=== PATIENT | female | born 1990 | race American Indian/Alaskan Native ===

== ENCOUNTER 2016-05-17 07:39 | Emergency (ER) | payer OTHER ==
--- NOTE | 2016-05-17 11:48 | Emergency Department Report ---
ED Fall HPI - General Chief Complaint: Fall Stated Complaint: BACK SHOULDER NECK PAIN/FALL Time Seen by Provider: 05/17/16 11:42 Source: patient Mode of arrival: Ambulatory Limitations: No Limitations - History of Present Illness Initial Comments: Patient here reports that she fell off a ladder approximately 3-4 feet unsightly. She says she felt her back. Denies any head injury or loss of consciousness. She says she took Tylenol without any relief. She is use ice and hot soaks without any relief. She said the pain is going down the back of her neck and also in is located in mid back and lower back. Denies any nausea or vomiting. Has any loss of bowel or bladder control. Denies any dizziness, blurred vision or unsteady on feet. Pain is 7-9 out of 10. She reports pain is achy. Denies any radiation of pain to extremities. MD Complaint: fall Onset/Timin -: days(s) Fall From: from height (distance) (fell 3-4 feet off a ladder) When Fall Occurred: # days [employer] (3) Fall Witnessed: yes, by family Place Fall Occurred: home Loss of Consciousness: none Prolonged Down Time?: no Symptoms Prior to Fall: none Location: neck, back Severity: severe Severity scale (0 -10): 9 Quality: aching Context: tripped/slipped Associated Symptoms: denies: headache, neck pain, numbness, weakness, chest paint, shortness of breath, abdominal pain, hematuria, unable to walk, lightheaded, vertigo, confusion - Related Data Previous Rx's Medication Instructions Recorded Last Taken Type ALBUTEROL Inhaler [ProAir HFA 1 puff INHALATION Q4-6H PRN #1 inha 04/05/13 Unknown Rx Inhaler] Ondansetron [Zofran] 4 mg PO Q8HR PRN #12 tablet 04/05/13 Unknown Rx Amoxicillin/K Clav Tab [Augmentin 1 tab PO BID #20 tablet 06/04/13 Unknown Rx 875MG] Fluticasone Propionate [Flonase] 2 sprays NS DAILY #1 spray.susp 06/04/13 Unknown Rx Loratadine [Claritin] 10 mg PO DAILY #30 tablet 06/04/13 Unknown Rx predniSONE [Deltasone] 50 mg PO QDAY #5 tab 06/04/13 Unknown Rx SUMAtriptan SUCCINATE [Imitrex] 25 mg PO BID PRN #20 tab 07/31/14 Unknown Rx Ibuprofen [Motrin] 600 mg PO Q8H PRN #50 tablet 03/06/15 Unknown Rx traMADol [Ultram] 50 mg PO Q6HR PRN #20 tablet 03/06/15 Unknown Rx Penicillin Vk [Veetids TAB] 500 mg PO QID #56 tablet 11/13/15 Unknown Rx Cyclobenzaprine [Flexeril 10 MG 10 mg PO ONCE PRN #15 tablet 05/17/16 Unknown Rx TAB] Ibuprofen [Motrin 800 MG tab] 800 mg PO ONCE PRN #15 tablet 05/17/16 Unknown Rx Allergies Allergy/AdvReac Type Severity Reaction Status Date / Time codeine Allergy Angioedema Verified 05/17/16 09:08 hydrocodone Allergy Hives Verified 05/17/16 09:08 ED Review of Systems ROS: Stated complaint: BACK SHOULDER NECK PAIN/FALL Other details as noted in HPI Comment: All other systems reviewed and negative Constitutional: denies: chills, fever Respiratory: no symptoms reported Cardiovascular: denies: chest pain, palpitations, edema, syncope Gastrointestinal: denies: abdominal pain, nausea, vomiting, diarrhea Musculoskeletal: back pain, arthralgia. denies: joint swelling Skin: denies: rash Neurological: denies: headache, weakness, numbness, paresthesias, confusion, abnormal gait, vertigo ED Past Medical Hx - Past Medical History Previous Medical History?: Yes Hx Headaches / Migraines: Yes (MIGRAINE) Hx Seizures: Yes Hx Psychiatric Treatment: Yes (ANXIETY) Hx Asthma: Yes Additional medical history: Panic attacks, herniated cervical disc - Surgical History Past Surgical History?: No - Family History Family history: no significant - Social History Smoking Status: Never Smoker Substance Use Type: Alcohol - Medications Home Medications: Home Medications Medication Instructions Recorded Confirmed Last Taken Type ALBUTEROL Inhaler [ProAir HFA 1 puff INHALATION Q4-6H PRN #1 inha 04/05/13 Unknown Rx Inhaler] Ondansetron [Zofran] 4 mg PO Q8HR PRN #12 tablet 04/05/13 Unknown Rx Amoxicillin/K Clav Tab [Augmentin 1 tab PO BID #20 tablet 06/04/13 Unknown Rx 875MG] Fluticasone Propionate [Flonase] 2 sprays NS DAILY #1 spray.susp 06/04/13 Unknown Rx Loratadine [Claritin] 10 mg PO DAILY #30 tablet 06/04/13 Unknown Rx predniSONE [Deltasone] 50 mg PO QDAY #5 tab 06/04/13 Unknown Rx SUMAtriptan SUCCINATE [Imitrex] 25 mg PO BID PRN #20 tab 07/31/14 Unknown Rx Ibuprofen [Motrin] 600 mg PO Q8H PRN #50 tablet 03/06/15 Unknown Rx traMADol [Ultram] 50 mg PO Q6HR PRN #20 tablet 03/06/15 Unknown Rx Penicillin Vk [Veetids TAB] 500 mg PO QID #56 tablet 11/13/15 Unknown Rx Cyclobenzaprine [Flexeril 10 MG 10 mg PO ONCE PRN #15 tablet 05/17/16 Unknown Rx TAB] Ibuprofen [Motrin 800 MG tab] 800 mg PO ONCE PRN #15 tablet 05/17/16 Unknown Rx ED Physical Exam - General Limitations: No Limitations General appearance: alert, in no apparent distress - Head Head exam: Present: atraumatic, normocephalic, normal inspection - Expanded Head Exam Expanded Head exam: Absent: laceration, abrasion, contusion, hematoma, racoon eyes, young's sign, general tenderness, tenderness of temporal artery, CSF rhinorrhea , CSF otorrhea - Eye Eye exam: Present: normal appearance, PERRL, EOMI. Absent: periorbital swelling , periorbital tenderness Pupils: Present: normal accommodation - Expanded ENT Exam Expanded Ear exam: Present: normal external inspection - Neck Neck exam: Present: normal inspection, tenderness, full ROM. Absent: meningismus, lymphadenopathy - Expanded Neck Exam Expanded Neck exam: Present: tenderness. Absent: midline deformity, anterior neck swelling, tracheal deviation - Respiratory Respiratory exam: Present: normal lung sounds bilaterally. Absent: respiratory distress, chest wall tenderness - Cardiovascular Cardiovascular Exam: Present: regular rate, normal rhythm, normal heart sounds - GI/Abdominal GI/Abdominal exam: Present: soft, normal bowel sounds. Absent: distended, tenderness, guarding, rebound, rigid - Extremities Exam Extremities exam: Present: normal inspection, full ROM, normal capillary refill. Absent: tenderness, pedal edema, joint swelling, calf tenderness - Back Exam Back exam: Present: normal inspection, full ROM, tenderness, vertebral tenderness. Absent: CVA tenderness (R), CVA tenderness (L), muscle spasm, paraspinal tenderness, rash noted - Expanded Back Exam Expanded Back exam: Absent: saddle anesthesia Back exam: Negative Straight Leg Raising: Left, Right - Neurological Exam Neurological exam: Present: alert, oriented X3, normal gait, reflexes normal. Absent: motor sensory deficit - Expanded Neurological Exam Expanded Neurological exam: Absent: innattentive, memory loss-remote event, memory loss- recent event, ataxia, receptive aphasia, expressive aphasia, total aphasia, tremor, protecting the airway Patient oriented to: Present: person, place, time Speech: Present: fluid speech Cranial nerves: EOM's Intact: Normal, Gag Reflex: Normal, Nystagmus: Normal Cerebellar function: Romberg: Normal Upper motor neuron: Pronator Drift: Normal, Sensory Extinction: Normal Sensory exam: Upper Extremity Light Touch: Normal, Upper Extremity Temperature: Normal, UE 2 Point Discrimination: Normal, Lower Extremity Light Touch: Normal, Lower Extremity Temperature: Normal, LE 2 Point Discrimination: Normal Motor strength exam: RUE: 5, LUE: 5, RLE: 5, LLE: 5 DTR: bicep (R): 2+, bicep (L): 2+, tricep (R): 2+, tricep (L): 2+, knee (R): 2+ , knee (L): 2+, ankle (R): 2+, ankle (L): 2+ Best Eye Response (Casey): (4) open spontaneously Best Motor Response (Suches): (6) obeys commands Best Verbal Response (Casey): (5) oriented Suches Total: 15 ED Course Vital Signs 05/17/16 09:09 Temperature 99.1 F Pulse Rate 82 Respiratory 17 Rate Blood Pressure 125/81 O2 Sat by Pulse 100 Oximetry - Reevaluation(s) Reevaluation #1: 05/17/16 12:19 Patient given Flexeril 10 mg by mouth along with Motrin 800 mg by mouth and emergency room for pain. ED Medical Decision Making - Radiology Data Radiology results: report reviewed X-rays C-spine, T-spine and L-spine revealed no acute findings. - Medical Decision Making ED course: Patient status post fall 3-4 feet off ladder. X-ray results of C- spine, T-spine and L-spine revealed no acute findings. This was communicated with patient. Patient given Flexeril 10 mg and Motrin 800 mg in emergency room which relieved her pain. Patient is neurologically intact. I discussed with patient that she will need to follow-up with orthopedic if she continues to have pain. She discharged home with her family with prescription for Flexeril and Motrin. Critical care attestation.: If time is entered above; I have spent that time in minutes in the direct care of this critically ill patient, excluding procedure time. ED Disposition Clinical Impression: Thoracolumbar back pain, Neck arthralgia Accidental fall from ladder Qualifiers: Encounter type: initial encounter Qualified Code(s): W11.XXXA - Fall on and from ladder, initial encounter Disposition: DISCHARGED TO HOME OR SELFCARE Is pt being admited?: No Does the pt Need Aspirin: No Condition: Stable Instructions: Arthralgia (ED), Back Pain (ED) Additional Instructions: Please follow up with orthopedic doctor few continue to have pain. Flexeril can cause drowsiness so please do not drive or operate heavy machinery while taking this medication Prescriptions: Cyclobenzaprine [Flexeril 10 MG TAB] 10 mg PO ONCE PRN #15 tablet PRN Reason: Muscle Spasm Ibuprofen [Motrin 800 MG tab] 800 mg PO ONCE PRN #15 tablet PRN Reason: Pain Referrals: DUKE MYERS MD [Staff Physician] - 2-3 Days Forms: Work/School Release Form(ED)
[2016-05-17] MEDS ORDERED: MOTRIN PO ONE (11:55)
[2016-05-17] MEDS ORDERED: FLEXERIL PO ONE (11:55)
--- NOTE | 2016-05-17 12:39 | XRay Report ---
CERVICAL SPINE, 3 views: History: Neck pain. Findings: The vertebral bodies, disk spaces, posterior elements and prevertebral soft tissues are unremarkable. The dens is intact. No acute fracture or malalignment is identified. Impression: 1. No evidence for acute injury to the cervical spine.
--- NOTE | 2016-05-17 12:41 | XRay Report ---
THORACOLUMBAR SPINE, 2 VIEWS History: Back pain after fall. The bones are normally mineralized with well preserved vertebral height, alignment and interspace distances. No paraspinal soft tissue widening is noted. IMPRESSION: Normal study.
[2016-05-17 13:21] VITALS: BP 130/84
== END 2016-05-17 13:21 | disposition home or self-care (01) ==
LOC: ED 07:39
DX: M54.5 Low back pain (principal); M54.6 Pain in thoracic spine; M54.2 Cervicalgia; G43.909 Migraine, unspecified, not intractable, without status migrainosus; J45.909 Unspecified asthma, uncomplicated; W11.XXXA Fall on and from ladder, initial encounter; Y93.9 Activity, unspecified; Y92.9 Unspecified place or not applicable; Y99.9 Unspecified external cause status
CPT/HCPCS: 72040; 72080; 99283

== ENCOUNTER 2016-09-23 18:51 | Emergency (ER) | payer SELFPAY ==
[2016-09-23 19:04] VITALS: BP 137/91
[2016-09-23] MEDS ORDERED: TORADOL IM ONE (19:21)
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
== END 2016-09-23 20:04 | disposition home or self-care (01) ==
LOC: ED 18:51
DX: S16.1XXA Strain of muscle, fascia and tendon at neck level, initial encounter (principal); M54.5 Low back pain; G89.29 Other chronic pain; G43.909 Migraine, unspecified, not intractable, without status migrainosus; F41.9 Anxiety disorder, unspecified; J45.909 Unspecified asthma, uncomplicated; Z88.5 Allergy status to narcotic agent; Z88.8 Allergy status to other drugs, medicaments and biological substances; V89.2XXA Person injured in unspecified motor-vehicle accident, traffic, initial encounter; Y93.89 Activity, other specified; Y99.9 Unspecified external cause status; Y92.410 Unspecified street and highway as the place of occurrence of the external cause
CPT/HCPCS: 96372; 99282; J1885

== ENCOUNTER 2021-10-06 14:41 | Outpatient (CLI) | payer MEDICAID ==
[2021-10-06] MEDS ORDERED: hydrALAZINE 20 MG/1 ML INJ ONE (16:39)
[2021-10-06] MEDS ORDERED: BETAMET ACET/BETAMET NA PH 6 MG/ML INJ 5 ML MDV IM SCH (18:00)
--- NOTE | 2021-10-06 18:57 | Ultrasound Report ---
ULTRASOUND OBSTETRIC LIMITED ULTRASOUND BIOPHYSICAL PROFILE INDICATION / CLINICAL INFORMATION: . Clinical Gestational Age (GA) in weeks, days: 34, 2 TECHNIQUE: Transabdominal. COMPARISON: None available. FINDINGS: BREATHING MOVEMENT = 0 GROSS BODY MOVEMENT = 2 TONE = 2 QUALITATIVE AMNIOTIC FLUID VOLUME = 2 TOTAL BIOPHYSICAL SCORE = 6/8 HEART RATE (beats per minute): 150 AMNIOTIC FLUID INDEX (cm) = 13.9 (normal = 7-24 cm) PRESENTATION: Cephalic. ADDITIONAL FINDINGS: None. IMPRESSION: 1. Biophysical Score = 6/8 Signer Name: Domingo Chase MD Signed: 10/06/2021 6:52 PM Workstation Name: [email or web address]
[2021-10-06] MEDS ORDERED: TERBUTALINE 1 MG/1 ML INJ SUB-Q PRN (21:22)
[2021-10-06] MEDS ORDERED: ACETAMINOPHEN 325 MG TAB PO PRN (21:22)
[2021-10-06] MEDS ORDERED: fentaNYL 100 MCG/2 ML INJ IV PRN (21:22)
[2021-10-06 21:49] LABS: Hematocrit 28.4 % (30.3-42.9); Hemoglobin 9.2 gm/dl (10.1-14.3); Mean Corpuscular HGB Conc 32 % (30-34); Mean Corpuscular Volume 91 fl (79-97); Platelet Count 272 K/mm3 (140-440); Red Blood Count 3.11 M/mm3 (3.65-5.03); Red Cell Distribution Width 14.3 % (13.2-15.2)
[2021-10-06 21:51] LABS: Bilirubin,Urine NEG (Negative); Blood,Urine NEG (Negative); Color,Urine Straw (Yellow); Protein,Urine <15 mg/dL mg/dL (Negative); Urobilinogen,Urine < 2.0 mg/dL (<2.0)
[2021-10-06 21:53] LABS: Bacteria,Urine 1+ /HPF (Negative); RBC,Urine < 1.0 /HPF (0.0-6.0)
[2021-10-06 22:12] LABS: Alanine Aminotransferase 8 units/L (7-56); Uric Acid 2.5 mg/dL (3.5-7.6)
[2021-10-06] MEDS: LACTATED RINGERS 1,000 ML IV SCH (22:38)
[2021-10-07] MEDS: LACTATED RINGERS 1,000 ML IV SCH (07:06)
--- NOTE | 2021-10-07 12:41 | Short Stay Summary ---
Short Stay Documentation Date of service: 10/07/21 Narrative H&P: 31 yo, @ 34.3wks, initiated care with [facility] splitter machine at 13wks. 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 Presents to [facility] yesterday with reports of painful ctxs, was found to have elevated B/P readings and BPP of 6/8. Admitted for 24 hr OBs. - History Principal diagnosis: cHTN; r/o PTL H&P: obtained from office Past Medical History: hypertension, other (anxiety and depression, irregular heart beat; ovarian cyst) Social history: single, full code, no smoking, no alcohol abuse, no prescription drug abuse, no IV drug use - Allergies and Medications Current Medications: Allergies codeine Allergy (Verified 05/17/16 09:08) Angioedema hydrocodone Allergy (Verified 05/17/16 09:08) Hives Home Medications Medication Instructions Recorded Confirmed Last Taken Type Albuterol Mdi (or & Nicu Only) 1 puff INHALATION Q4-6H PRN #1 inha 04/05/13 Unknown Rx [ProAir HFA Inhaler] Fluticasone Propionate [Flonase] 2 sprays NS DAILY #1 spray.susp 06/04/13 Unknown Rx Loratadine (Nf) [Claritin] 10 mg PO DAILY #30 tablet 06/04/13 Unknown Rx SUMAtriptan SUCCINATE [Imitrex] 25 mg PO BID PRN #20 tab 07/31/14 Unknown Rx methOCARBAMOL [Robaxin TAB] 500 mg PO Q6H PRN #15 tablet 09/23/16 Unknown Rx methylPREDNISolone [Medrol] 4 mg PO DAILY #1 tab.ds.pk 09/23/16 Unknown Rx traMADoL [Ultram] 50 mg PO Q6HR PRN #12 tablet 09/23/16 Unknown Rx Active Medications Acetaminophen (Acetaminophen 325 Mg Tab) 650 mg PO Q4H PRN PRN Reason: Pain, Mild (1-3) Betamethasone Acet/Betameth SodPhos (Betamet Acet/Betamet Na Ph 6 Mg/Ml Inj 5 Ml Mdv) 12 mg IM Q24HR YASMIN Last Admin: 10/06/21 18:09 Dose: 12 mg Hydroxyzine Pamoate (Hydroxyzine Pamoate 50 Mg Cap) 50 mg PO Q6H PRN PRN Reason: Anxiety Last Admin: 10/07/21 01:06 Dose: 50 mg Lactated Ringer's (Lactated Ringers) 1,000 mls @ 125 mls/hr IV DIRECT YASMIN Last Admin: 10/07/21 07:06 Dose: 125 mls/hr Labetalol HCl (Labetalol 100 Mg Tab) 100 mg PO BID [facility] Last Admin: 10/07/21 10:04 Dose: 100 mg - Physical exam General appearance: no acute distress Integumentary: no rash Lungs: Normal air movement Breasts: deferred Heart: Regular rate Neurological: Normal gait, Normal speech - Disposition Condition at discharge: Stable Disposition: 01 HOME / SELF CARE / HOMELESS - Discharge Diagnoses (1) Chronic hypertension affecting Status: Acute Short Stay Discharge Plan Activity: no restrictions Diet: low salt Special Instructions: no heavy lifting Follow up with: JACQUIE OVALLE MD [Primary Care Provider] - 3 Days Prescriptions: labetaloL [Labetalol 100mg TAB] 100 mg PO BID 30 Days #60 tablet
--- NOTE | 2021-10-07 14:38 | Ultrasound Report ---
ULTRASOUND BIOPHYSICAL PROFILE INDICATION / CLINICAL INFORMATION: labor. COMPARISON: Limited OB ultrasound with biophysical profile performed yesterday. FINDINGS: BREATHING MOVEMENT = 2 GROSS BODY MOVEMENT = 2 TONE = 2 QUALITATIVE AMNIOTIC FLUID VOLUME = 2 TOTAL BIOPHYSICAL SCORE = 8/8 AMNIOTIC FLUID: Not measured. Subjectively normal. PRESENTATION: Cephalic. HEART RATE (beats per minute): 136 BPM IMPRESSION: 1. biophysical profile = 11/01 Scribed by: Shauna Jefferson RDMS, RVT, RMSKS Scribed: 10/07/2021 12:48 PM I have reviewed the images, agree with this report, and edited this report as needed. Signer Name: Lance Chase MD Signed: 10/07/2021 2:33 PM Workstation Name: [id number]
[2021-10-07 17:20] VITALS: BP 134/73
== END 2021-10-07 17:59 | disposition home or self-care (01) ==
LOC: TRG 14:41 → APU 16:05 → LD 20:55 → TRG 10-07 17:59
PROVIDERS: ATTEND Obstetrics & Gynecology
DX: O62.9 Abnormality of forces of labor, unspecified (principal); O99.013 Anemia complicating pregnancy, third trimester; D64.9 Anemia, unspecified; O99.513 Diseases of the respiratory system complicating pregnancy, third trimester; J45.909 Unspecified asthma, uncomplicated; Z20.822 Contact with and (suspected) exposure to COVID-19; Z3A.34 34 weeks gestation of pregnancy
CPT/HCPCS: 36415; 59025; 76815; 76819; 81001; 82565; 83615; 84450; 84460; 84550; 85027; 86850; 86900; 86901; 96360; 96361; 96372; J0702; J3105; J7120; Q0177; U0003

== ENCOUNTER 2021-10-11 18:24 | Inpatient (IN) | payer MEDICAID ==
[2021-10-11] MEDS ORDERED: LACTATED RINGERS 1,000 ML IV ONE (21:44)
[2021-10-11] MEDS: hydrALAZINE 20 MG/1 ML INJ IV PRN ×2 (22:24→23:00)
[2021-10-11 22:47] LABS: Hematocrit 28.2 % (30.3-42.9); Hemoglobin 9.2 gm/dl (10.1-14.3); Mean Corpuscular HGB Conc 33 % (30-34); Mean Corpuscular Volume 90 fl (79-97); Platelet Count 358 K/mm3 (140-440); Red Blood Count 3.13 M/mm3 (3.65-5.03); Red Cell Distribution Width 14.2 % (13.2-15.2)
[2021-10-11 23:04] LABS: Bacteria,Urine 1+ /HPF (Negative); Mucus,Urine FEW /HPF
[2021-10-11 23:26] LABS: Alanine Aminotransferase 12 units/L (7-56); Uric Acid 2.9 mg/dL (3.5-7.6)
[2021-10-11 23:43] LABS: Bilirubin,Urine Negative (Negative); Blood,Urine Negative (Negative); Color,Urine Yellow (Yellow); Protein,Urine <15 mg/dL mg/dL (Negative); Urobilinogen,Urine < 2.0 mg/dL (<2.0)
[2021-10-12] MEDS ORDERED: AMPICILLIN/NS 2 GM/100 ML 2 GM/100 ML BAG IV ONE (00:26)
[2021-10-12] MEDS ORDERED: DOCUSATE SODIUM 100 MG CAP PO PRN (00:26)
[2021-10-12] MEDS: LACTATED RINGERS 1,000 ML IV SCH (08:00)
[2021-10-12] MEDS: PRENATAL VIT27-FE FUMARATE-FOLIC ACID VIT TAB PO SCH ×2 (08:28→12:20)
[2021-10-12] MEDS: hydrALAZINE 20 MG/1 ML INJ IV PRN (08:30)
[2021-10-12] MEDS ORDERED: ACETAMINOPHEN 500 MG TAB PO NR (08:50)
--- NOTE | 2021-10-12 08:50 | History and Physical Report ---
History of Present Illness Date of examination: 10/12/21 Date of admission: 10/12/21 00:26 Chief complaint: headache, contractions, elevated blood pressure History of present illness: Late entry.Pt is a 31 year old -[place] female FABIANO 11/15/21 at 35w1d who presents with pelvic pain and elevated blood pressure. She was admitted last week for observation of BP and administration of betamethasone for lung maturity. She was prescribed Labetalol 100 mg BID at that time, but the prescription was not at the pharmacy, and she has not had any BP meds in 3 days. She notes headache but has not taken any medication to ameliorate the pain. 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 Her GBS status is unknown. Past History Past Medical History: asthma, arrhythmia, hypertension, other (irregular heart beat, herniated discs ) Past Surgical History: no surgical history Family/Genetic History: hypertension Social history: no significant social history - Obstetrical History Expected Date of Delivery: 11/15/21 Actual Gestation: 35 Week(s) 1 Day(s) : 4 Para: 0 Hx # Term Pregnancies: 0 Number of Pregnancies: 0 Spontaneous Abortions: 3 Induced : 0 Number of Living Children: 0 Medications and Allergies Allergies Allergy/AdvReac Type Severity Reaction Status Date / Time codeine Allergy Angioedema Verified 05/17/16 09:08 hydrocodone Allergy Hives Verified 05/17/16 09:08 Home Medications Medication Instructions Recorded Confirmed Last Taken Type Albuterol Mdi (or & Nicu Only) 1 puff INHALATION Q4-6H PRN #1 inha 04/05/13 Unknown Rx [ProAir HFA Inhaler] Fluticasone Propionate [Flonase] 2 sprays NS DAILY #1 spray.susp 06/04/13 Unknown Rx Loratadine (Nf) [Claritin] 10 mg PO DAILY #30 tablet 06/04/13 Unknown Rx SUMAtriptan SUCCINATE [Imitrex] 25 mg PO BID PRN #20 tab 07/31/14 Unknown Rx methOCARBAMOL [Robaxin TAB] 500 mg PO Q6H PRN #15 tablet 09/23/16 Unknown Rx methylPREDNISolone [Medrol] 4 mg PO DAILY #1 tab.ds.pk 09/23/16 Unknown Rx traMADoL [Ultram] 50 mg PO Q6HR PRN #12 tablet 09/23/16 Unknown Rx labetaloL [Labetalol 100mg TAB] 100 mg PO BID 30 Days #60 tablet 10/07/21 Unknown Rx labetaloL [Labetalol 100mg TAB] 100 mg PO BID #60 tab 10/11/21 Unknown Rx Active Meds: Active Medications Acetaminophen (Acetaminophen 325 Mg Tab) 650 mg PO Q4H PRN PRN Reason: Pain MILD(1-3)/Fever >100.5/MCNEAL Docusate Sodium (Docusate Sodium 100 Mg Cap) 100 mg PO Q12H PRN PRN Reason: Constipation Hydralazine HCl (Hydralazine 20 Mg/1 Ml Inj) 5 mg IV Q30MIN PRN PRN Reason: SBP > 165, Diastolic > 110 Last Admin: 10/12/21 08:30 Dose: 5 mg Lactated Ringer's (Lactated Ringers) 1,000 mls @ 125 mls/hr IV DIRECT [facility] Last Admin: 10/12/21 08:00 Dose: 125 mls/hr Ampicillin Sodium (Ampicillin/Ns 1 Gm/50 Ml) 1 gm in 50 mls @ 100 mls/hr IV Q4H [facility]; Protocol Labetalol HCl (Labetalol 100 Mg Tab) 100 mg PO BID [facility] Last Admin: 10/12/21 08:28 Dose: 100 mg Multivitamins/Iron/Calcium ( [id number] Fumarate-Folic Acid Vit Tab) 1 each PO QDAY [facility] Last Admin: 10/12/21 08:28 Dose: 1 each Ondansetron HCl (Ondansetron 4 Mg/2 Ml Inj) 4 mg IV Q6H PRN PRN Reason: Nausea And Vomiting Review of Systems All systems: negative - Vital Signs Vital signs: Vital Signs Temp 98.5 F 10/11/21 20:14 Temp Pulse Resp BP Pulse Ox 97.1 F L 67 16 169/78 100 10/12/21 03:04 10/12/21 08:47 10/12/21 03:04 10/12/21 08:38 10/12/21 08:47 - Physical Exam Breasts: Positive: deferred Abdomen: Positive: soft (gravid ) Uterus: Positive: enlarged (gravid) Extremities: Positive: edema (left greater than right ) - Obstetrical FHR: auscultation normal Uterine Contraction Monitor Mode: External Cervical Dilatation: 0 Uterine Contraction Pattern: Irregular Uterine Tone Measurement Phase: Resting Uterine Contraction Intensity: Moderate Results Result Diagrams: 10/11/21 22:29 10/11/21 22:29 Abnormal lab results 10/11/21 10/11/21 Range/Units 22:29 22:29 RBC 3.13 L (3.65-5.03) M/mm3 Hgb 9.2 L (10.1-14.3) gm/dl Hct 28.2 L (30.3-42.9) % Creatinine 0.5 L (0.6-1.2) mg/dL Uric Acid 2.9 L (3.5-7.6) mg/dL Lactate Dehydrogenase 204 H (91-180) units/L All other labs normal. Assessment and Plan A: IUP at 35w1d s/p betamethasone on 10/06 and 10/07 Elevated blood pressure Left greater than right lower extremity edema contractions Chronic hypertension on no meds presently Irregular heart beat Asthma Glucose intolerance Trichomonas treated with negative test of cure Herniated discj Irregular heart beat Anemia Rubella non-immune Silent alpha thalassemia carrier GBS unknown P: Admit to antepartum service Serial BPs PIH labs Left lower extremity doppler Antihypertensives as indicated Closely monitor maternal and status
--- NOTE | 2021-10-12 11:36 | Vascular Lab Report ---
DUPLEX DOPPLER LOWER EXTREMITY VEINS, LEFT INDICATION / CLINICAL INFORMATION: left lower extremity edema, 35 wks . TECHNIQUE: Duplex doppler imaging was performed through the veins of the left lower extremity using venous compr ession and other maneuvers. COMPARISON: None available. FINDINGS: LEFT COMMON FEMORAL VEIN: Negative. LEFT FEMORAL VEIN: Negative. LEFT POPLITEAL VEIN: Negative. LEFT CALF VEINS: Negative. ADDITIONAL FINDINGS: None. IMPRESSION: 1. No sonographic evidence for DVT in the left lower extremity. Signer Name: Naveed Fong MD Signed: 10/12/2021 11:31 AM Workstation Name: [id number]
[2021-10-12] MEDS: ACETAMINOPHEN 325 MG TAB PO PRN (19:44)
[2021-10-12] MEDS ORDERED: MINERAL OIL 30 ML ORAL LIQD PO PRN (20:17)
[2021-10-12] MEDS ORDERED: NALOXONE 0.4 MG/1 ML INJ IV PRN (20:17)
[2021-10-12] MEDS ORDERED: ePHEDrine SULFATE 50 MG/1 ML INJ IV PRN (20:17)
[2021-10-12] MEDS ORDERED: OXYTOCIN 10 UNIT/1 ML INJ IM PRN (20:17)
[2021-10-12] MEDS ORDERED: BUTORPHANOL 2 MG/1 ML INJ IV PRN (20:17)
[2021-10-12] MEDS ORDERED: LIDOCAINE (2%) 20 MG/1 ML VIAL 20 ML MDV INFILTRATI ONE (20:17)
[2021-10-12] MEDS ORDERED: miSOPROStol 200 MCG TAB PR PRN (20:17)
[2021-10-12] MEDS ORDERED: TERBUTALINE 1 MG/1 ML INJ SUB-Q PRN (20:17)
[2021-10-12] MEDS ORDERED: LOPERAMIDE 2 MG CAP PO PRN (20:17)
[2021-10-12] MEDS ORDERED: CALCIUM GLUCONATE 1000 MG/10 ML INJ IV PRN (20:19)
[2021-10-12] MEDS ORDERED: LACTATED RINGERS 1,000 ML IV SCH ×2 (20:30)
[2021-10-12] MEDS ORDERED: MAGNESIUM SULFATE 4 GM/100 ML BAG IV ONE (21:00)
[2021-10-12] MEDS ORDERED: OXYTOCIN DRIP 30 UNITS/500 ML BAG IV SCH ×2 (21:00)
[2021-10-12] MEDS ORDERED: DINOPROSTONE 10 MG VAG SUPP VG ONE (21:00)
[2021-10-12] MEDS: MAGNESIUM SULFATE 40GM/1000ML 40 GM/1,000 ML BAG IV SCH (21:10)
--- NOTE | 2021-10-12 22:53 | Event Note ---
Date: 10/12/21 Late entry. Pt reports headache minimally improved by Tylenol. Left lower extremity doppler negative. BP in mild range on Labetalol 300mg BID. Pt diagnosed the superimposed preeclampsia with severe features. Begin magnesium sulfate for seizure prophylaxis, and induction. Cervix closed. Plan cervidil for cervical ripening. Closely monitor maternal and status.
[2021-10-13] MEDS: fentaNYL 100 MCG/2 ML INJ IV PRN ×2 (02:45→22:35)
--- NOTE | 2021-10-13 08:37 | Progress Note ---
Assessment and Plan - Patient Problems (1) Chronic hypertension affecting Current Visit: No Status: Acute Plan to address problem: S/P cervid at 0830 Initiate cytotec po as tolerated Continue to closely monitor maternal/ wellbeing (2) Encounter for induction of labor Current Visit: Yes Status: Acute (3) Anemia Current Visit: Yes Status: Acute Qualifiers: Anemia type: iron deficiency Plan to address problem: Asymptomatic Subjective - Subjective Date of service: 10/13/21 Principal diagnosis: IOL; HTN Interval history: Late entry.Pt is a 31 year old -[place]ine[place] female FABIANO 11/15/21 at 35w1d who presents with pelvic pain and elevated blood pressure. She was admitted last week for observation of BP and administration of betamethasone for lung maturity. She was prescribed Labetalol 100 mg BID at that time, but the prescription was not at the pharmacy, and she has not had any BP meds in 3 days. She notes headache but has not taken any medication to ameliorate the pain. 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 Her GBS status is unknown. Pt reports headache minimally improved by Tylenol. Left lower extremity doppler negative. BP in mild range on Labetalol 300mg BID. Pt diagnosed the superimposed preeclampsia with severe features. Begin magnesium sulfate for seizure prophylaxis, and induction. Cervix closed. Plan cervidil for cervical ripening. Patient reports: movement normal, contractions, no new complaints, no loss of fluid, no vaginal bleeding Objective - Vital Signs Vital Signs: Vital Signs - 12hr 10/12/21 10/12/21 10/12/21 20:39 20:44 20:48 Temperature Pulse Rate 79 83 81 Respiratory Rate Blood Pressure 142/80 Blood Pressure [Left] O2 Sat by Pulse 99 99 Oximetry 10/12/21 10/12/21 10/12/21 20:49 20:54 20:59 Temperature Pulse Rate 81 85 94 H Respiratory Rate Blood Pressure Blood Pressure [Left] O2 Sat by Pulse 99 100 99 Oximetry 10/12/21 10/12/21 10/12/21 21:04 21:08 21:09 Temperature Pulse Rate 79 84 84 Respiratory Rate Blood Pressure 140/73 Blood Pressure [Left] O2 Sat by Pulse 100 99 Oximetry 10/12/21 10/12/21 10/12/21 21:14 21:19 21:24 Temperature Pulse Rate 78 81 87 Respiratory Rate Blood Pressure Blood Pressure [Left] O2 Sat by Pulse 99 99 99 Oximetry 10/12/21 10/12/21 10/12/21 21:28 21:29 21:34 Temperature Pulse Rate 77 79 81 Respiratory Rate Blood Pressure 143/74 Blood Pressure [Left] O2 Sat by Pulse 99 99 Oximetry 10/12/21 10/12/21 10/12/21 21:39 21:44 21:49 Temperature Pulse Rate 84 81 83 Respiratory Rate Blood Pressure 145/80 Blood Pressure [Left] O2 Sat by Pulse 99 99 99 Oximetry 10/12/21 10/12/21 10/12/21 21:51 21:54 21:59 Temperature Pulse Rate 83 81 81 Respiratory Rate Blood Pressure Blood Pressure [Left] O2 Sat by Pulse 99 99 Oximetry 10/12/21 10/12/21 10/12/21 22:04 22:09 22:14 Temperature Pulse Rate 78 88 77 Respiratory Rate Blood Pressure 147/84 Blood Pressure [Left] O2 Sat by Pulse 99 100 98 Oximetry 10/12/21 10/12/21 10/12/21 22:19 22:24 22:29 Temperature Pulse Rate 88 77 79 Respiratory Rate Blood Pressure 147/82 Blood Pressure [Left] O2 Sat by Pulse 99 100 100 Oximetry 10/12/21 10/12/21 10/12/21 22:34 22:39 22:44 Temperature Pulse Rate 70 75 87 Respiratory Rate Blood Pressure Blood Pressure [Left] O2 Sat by Pulse 99 99 99 Oximetry 10/12/21 10/12/21 10/12/21 22:49 22:54 22:59 Temperature Pulse Rate 81 76 73 Respiratory Rate Blood Pressure 129/72 Blood Pressure [Left] O2 Sat by Pulse 98 99 99 Oximetry 10/12/21 10/12/21 10/12/21 23:04 23:08 23:09 Temperature Pulse Rate 79 76 89 Respiratory Rate Blood Pressure 129/75 Blood Pressure [Left] O2 Sat by Pulse 99 100 Oximetry 10/12/21 10/12/21 10/12/21 23:14 23:19 23:24 Temperature Pulse Rate 77 74 72 Respiratory Rate Blood Pressure Blood Pressure [Left] O2 Sat by Pulse 99 100 100 Oximetry 10/12/21 10/12/21 10/12/21 23:28 23:29 23:34 Temperature Pulse Rate 69 72 76 Respiratory Rate Blood Pressure 143/82 Blood Pressure [Left] O2 Sat by Pulse 99 100 Oximetry 10/12/21 10/12/21 10/12/21 23:39 23:44 23:48 Temperature Pulse Rate 74 77 75 Respiratory Rate Blood Pressure 150/86 Blood Pressure [Left] O2 Sat by Pulse 99 99 Oximetry 10/12/21 10/12/21 10/12/21 23:49 23:54 23:59 Temperature Pulse Rate 84 82 79 Respiratory Rate Blood Pressure Blood Pressure [Left] O2 Sat by Pulse 99 99 99 Oximetry 10/13/21 10/13/21 10/13/21 00:04 00:08 00:09 Temperature Pulse Rate 75 72 82 Respiratory Rate Blood Pressure 121/70 Blood Pressure [Left] O2 Sat by Pulse 99 98 Oximetry 10/13/21 10/13/21 10/13/21 00:14 00:19 00:24 Temperature Pulse Rate 75 80 75 Respiratory Rate Blood Pressure Blood Pressure [Left] O2 Sat by Pulse 99 98 98 Oximetry 10/13/21 10/13/21 10/13/21 00:28 00:29 00:34 Temperature Pulse Rate 75 78 75 Respiratory Rate Blood Pressure 117/60 Blood Pressure [Left] O2 Sat by Pulse 98 98 Oximetry 10/13/21 10/13/21 10/13/21 00:39 00:44 00:48 Temperature Pulse Rate 77 73 74 Respiratory Rate Blood Pressure 117/67 Blood Pressure [Left] O2 Sat by Pulse 99 98 Oximetry 10/13/21 10/13/21 10/13/21 00:49 00:54 00:59 Temperature Pulse Rate 80 76 84 Respiratory Rate Blood Pressure Blood Pressure [Left] O2 Sat by Pulse 98 98 97 Oximetry 10/13/21 10/13/21 10/13/21 01:04 01:08 01:09 Temperature Pulse Rate 83 82 76 Respiratory Rate Blood Pressure 119/69 Blood Pressure [Left] O2 Sat by Pulse 98 98 Oximetry 10/13/21 10/13/21 10/13/21 01:14 01:19 01:24 Temperature Pulse Rate 82 81 73 Respiratory Rate Blood Pressure Blood Pressure [Left] O2 Sat by Pulse 97 98 98 Oximetry 10/13/21 10/13/21 10/13/21 01:29 01:34 01:39 Temperature Pulse Rate 72 75 71 Respiratory Rate Blood Pressure 122/67 Blood Pressure [Left] O2 Sat by Pulse 98 98 98 Oximetry 10/13/21 10/13/21 10/13/21 01:44 01:48 01:49 Temperature Pulse Rate 77 77 75 Respiratory Rate Blood Pressure 134/74 Blood Pressure [Left] O2 Sat by Pulse 99 99 Oximetry 10/13/21 10/13/21 10/13/21 01:54 01:59 02:04 Temperature Pulse Rate 82 74 87 Respiratory Rate Blood Pressure Blood Pressure [Left] O2 Sat by Pulse 99 99 99 Oximetry 10/13/21 10/13/21 10/13/21 02:09 02:14 02:19 Temperature Pulse Rate 79 71 68 Respiratory Rate Blood Pressure 150/81 Blood Pressure [Left] O2 Sat by Pulse 99 99 100 Oximetry 10/13/21 10/13/21 10/13/21 02:24 02:28 02:29 Temperature Pulse Rate 71 74 76 Respiratory Rate Blood Pressure 129/72 Blood Pressure [Left] O2 Sat by Pulse 99 99 Oximetry 10/13/21 10/13/21 10/13/21 02:34 02:39 02:44 Temperature Pulse Rate 94 H 71 76 Respiratory Rate Blood Pressure Blood Pressure [Left] O2 Sat by Pulse 97 98 98 Oximetry 10/13/21 10/13/21 10/13/21 02:48 02:49 02:54 Temperature Pulse Rate 65 67 70 Respiratory Rate Blood Pressure 136/70 Blood Pressure [Left] O2 Sat by Pulse 99 99 Oximetry 10/13/21 10/13/21 10/13/21 02:59 03:04 03:08 Temperature Pulse Rate 61 65 63 Respiratory Rate Blood Pressure 128/81 Blood Pressure [Left] O2 Sat by Pulse 99 99 Oximetry 10/13/21 10/13/21 10/13/21 03:09 03:14 03:19 Temperature Pulse Rate 67 70 65 Respiratory Rate Blood Pressure Blood Pressure [Left] O2 Sat by Pulse 99 99 99 Oximetry 10/13/21 10/13/21 10/13/21 03:24 03:28 03:29 Temperature Pulse Rate 68 66 67 Respiratory Rate Blood Pressure 130/74 Blood Pressure [Left] O2 Sat by Pulse 99 99 Oximetry 10/13/21 10/13/21 10/13/21 03:34 03:39 03:44 Temperature Pulse Rate 69 75 75 Respiratory Rate Blood Pressure Blood Pressure [Left] O2 Sat by Pulse 98 98 98 Oximetry 10/13/21 10/13/21 10/13/21 03:48 03:49 03:54 Temperature Pulse Rate 77 81 66 Respiratory Rate Blood Pressure 138/76 Blood Pressure [Left] O2 Sat by Pulse 99 99 Oximetry 10/13/21 10/13/21 10/13/21 03:59 04:04 04:08 Temperature Pulse Rate 67 67 64 Respiratory Rate Blood Pressure 127/73 Blood Pressure [Left] O2 Sat by Pulse 99 99 Oximetry 10/13/21 10/13/21 10/13/21 04:09 04:14 04:17 Temperature 98.2 F Pulse Rate 65 68 Respiratory Rate Blood Pressure Blood Pressure [Left] O2 Sat by Pulse 99 98 Oximetry 10/13/21 10/13/21 10/13/21 04:19 04:24 04:28 Temperature Pulse Rate 67 66 69 Respiratory Rate Blood Pressure 135/79 Blood Pressure [Left] O2 Sat by Pulse 98 99 Oximetry 10/13/21 10/13/21 10/13/21 04:29 04:34 04:39 Temperature Pulse Rate 66 67 65 Respiratory Rate Blood Pressure Blood Pressure [Left] O2 Sat by Pulse 99 99 99 Oximetry 10/13/21 10/13/21 10/13/21 04:44 04:48 04:49 Temperature Pulse Rate 66 68 69 Respiratory Rate Blood Pressure 132/79 Blood Pressure [Left] O2 Sat by Pulse 99 99 Oximetry 10/13/21 10/13/21 10/13/21 04:54 04:59 05:04 Temperature Pulse Rate 66 71 93 H Respiratory Rate Blood Pressure Blood Pressure [Left] O2 Sat by Pulse 99 99 99 Oximetry 10/13/21 10/13/21 10/13/21 05:08 05:09 05:14 Temperature Pulse Rate 74 84 79 Respiratory Rate Blood Pressure 139/82 Blood Pressure [Left] O2 Sat by Pulse 98 98 Oximetry 10/13/21 10/13/21 10/13/21 05:19 05:24 05:28 Temperature Pulse Rate 82 70 65 Respiratory Rate Blood Pressure 144/76 Blood Pressure [Left] O2 Sat by Pulse 98 99 Oximetry 10/13/21 10/13/21 10/13/21 05:29 05:34 05:39 Temperature Pulse Rate 70 68 69 Respiratory Rate Blood Pressure Blood Pressure [Left] O2 Sat by Pulse 98 98 98 Oximetry 10/13/21 10/13/21 10/13/21 05:44 05:49 05:54 Temperature Pulse Rate 73 72 68 Respiratory Rate Blood Pressure 144/80 Blood Pressure [Left] O2 Sat by Pulse 99 99 100 Oximetry 10/13/21 10/13/21 10/13/21 05:59 06:04 06:08 Temperature Pulse Rate 65 70 67 Respiratory Rate Blood Pressure 148/80 Blood Pressure [Left] O2 Sat by Pulse 100 100 Oximetry 10/13/21 10/13/21 10/13/21 06:09 06:14 06:19 Temperature Pulse Rate 69 70 69 Respiratory Rate Blood Pressure Blood Pressure [Left] O2 Sat by Pulse 100 99 99 Oximetry 10/13/21 10/13/21 10/13/21 06:24 06:28 06:29 Temperature Pulse Rate 73 83 69 Respiratory Rate Blood Pressure 145/86 Blood Pressure [Left] O2 Sat by Pulse 99 100 Oximetry 10/13/21 10/13/21 10/13/21 06:34 06:39 06:44 Temperature Pulse Rate 68 69 79 Respiratory Rate Blood Pressure Blood Pressure [Left] O2 Sat by Pulse 99 99 99 Oximetry 10/13/21 10/13/21 10/13/21 06:48 06:49 06:54 Temperature Pulse Rate 86 68 68 Respiratory Rate Blood Pressure 140/92 Blood Pressure [Left] O2 Sat by Pulse 100 100 Oximetry 10/13/21 10/13/21 10/13/21 06:59 07:04 07:08 Temperature Pulse Rate 69 80 71 Respiratory Rate Blood Pressure 148/84 Blood Pressure [Left] O2 Sat by Pulse 99 99 Oximetry 10/13/21 10/13/21 10/13/21 07:09 07:11 07:14 Temperature 97.6 F Pulse Rate 65 68 75 Respiratory 16 Rate Blood Pressure Blood Pressure 148/84 [Left] O2 Sat by Pulse 99 100 100 Oximetry 10/13/21 10/13/21 10/13/21 07:19 07:24 07:29 Temperature Pulse Rate 77 82 70 Respiratory Rate Blood Pressure Blood Pressure [Left] O2 Sat by Pulse 100 99 100 Oximetry 10/13/21 10/13/21 10/13/21 07:34 07:39 07:44 Temperature Pulse Rate 73 69 71 Respiratory Rate Blood Pressure Blood Pressure [Left] O2 Sat by Pulse 99 99 99 Oximetry 10/13/21 10/13/21 10/13/21 07:49 07:54 07:59 Temperature Pulse Rate 75 85 93 H Respiratory Rate Blood Pressure Blood Pressure [Left] O2 Sat by Pulse 98 100 100 Oximetry 10/13/21 10/13/21 10/13/21 08:04 08:09 08:14 Temperature Pulse Rate 78 76 69 Respiratory Rate Blood Pressure Blood Pressure [Left] O2 Sat by Pulse 100 100 99 Oximetry 10/13/21 10/13/21 10/13/21 08:17 08:19 08:24 Temperature Pulse Rate 67 73 82 Respiratory Rate Blood Pressure 142/77 Blood Pressure [Left] O2 Sat by Pulse 99 99 Oximetry 10/13/21 10/13/21 08:29 08:34 Temperature Pulse Rate 74 71 Respiratory Rate Blood Pressure Blood Pressure [Left] O2 Sat by Pulse 100 100 Oximetry - Exam Breasts: deferred Cardiovascular: Regular rate Lungs: Normal air movement Abdomen: Present: other (gravid) Uterus: Present: other (S=D) FHR: category 1 Uterine Contraction Monitor Mode: External Cervical Dilatation: 0 station: -3 Uterine Contraction Pattern: Irregular Uterine Tone Measurement Phase: Resting Uterine Contraction Intensity: Mild - Labs Labs: Abnormal Labs 10/11/21 10/11/21 10/13/21 22:29 22:29 05:47 RBC 3.13 L Hgb 9.2 L Hct 28.2 L Creatinine 0.5 L Uric Acid 2.9 L Magnesium 3.90 H Lactate Dehydrogenase 204 H Laboratory Results - last 24 hr 10/12/21 10/13/21 13:20 05:47 Magnesium 3.90 H SARS-CoV-2 (PCR) Negative
[2021-10-13] MEDS: ONDANSETRON 4 MG/2 ML INJ IV PRN (08:38)
[2021-10-13] MEDS: BUTORPHANOL 2 MG/1 ML INJ IV PRN (08:38)
[2021-10-13] MEDS ORDERED: BUTORPHANOL 2 MG/1 ML INJ IV PRN (08:46)
[2021-10-13] MEDS: miSOPROStol 25 MCG TAB PO PRN ×3 (08:54→17:44)
[2021-10-13] MEDS: ACETAMINOPHEN 325 MG TAB PO PRN ×2 (12:47→19:25)
[2021-10-13] MEDS: MAGNESIUM SULFATE 40GM/1000ML 40 GM/1,000 ML BAG IV SCH (16:10)
[2021-10-13] MEDS: hydrALAZINE 20 MG/1 ML INJ IV PRN ×2 (22:40→23:14)
[2021-10-14] MEDS: miSOPROStol 25 MCG TAB PO PRN ×4 (01:35→20:39)
[2021-10-14] MEDS: fentaNYL 100 MCG/2 ML INJ IV PRN ×4 (05:50→20:42)
[2021-10-14] MEDS ORDERED: oxyCODONE /ACETAMINOPHEN 5-325MG TAB PO PRN (09:19)
--- NOTE | 2021-10-14 09:20 | Progress Note ---
Assessment and Plan - Patient Problems (1) Chronic hypertension affecting Current Visit: No Status: Acute Plan to address problem: Initiate cytotec po as tolerated Pain meds as ordered Continue to closely monitor maternal/ wellbeing (2) Encounter for induction of labor Current Visit: Yes Status: Acute (3) Anemia Current Visit: Yes Status: Acute Qualifiers: Anemia type: iron deficiency Plan to address problem: Asymptomatic Subjective - Subjective Date of service: 10/14/21 Principal diagnosis: IOL; Pre-eclampsia Interval history: Late entry.Pt is a 31 year old -[place] female FABIANO [birth year] at 35w1d who presents with pelvic pain and elevated blood pressure. She was admitted last week for observation of BP and administration of betamethasone for lung maturity. She was prescribed Labetalol 100 mg BID at that time, but the prescription was not at the pharmacy, and she has not had any BP meds in 3 days. She notes headache but has not taken any medication to ameliorate the pain. She has care at [facility] since 13 wks complicated by chronic hypertension since childhood , asthma, glucose intolerance, trichomonas treated with negative test of cure, herniated discs, sciatica, irregular heart beat, anemia, Rubella non-immune, silent alpha thalassemia carrier. Her GBS sta tus is unknown. Pt reports headache minimally improved by Tylenol. Left lower extremity doppler negative. BP in mild range on Labetalol 300mg BID. Pt diagnosed the superimposed preeclampsia with severe features. Begin magnesium sulfate for seizure prophylaxis, and induction. Cervix closed. Plan cervidil for cervical ripening. Patient reports: new complaints (Pt tearful stating, "The medicine is not doing anything and I hurt, my vagina hurts and I just want it to be over". Reassurance given to pt and explained that the induction process can be lengthly as we are attempting to induce labor that would not have otherwise occured yet. ), movement normal, contractions, no loss of fluid, no vaginal bleeding Objective - Vital Signs Vital Signs: Vital Signs - 12hr 10/13/21 10/13/21 10/13/21 21:24 21:29 21:34 Pulse Rate 73 68 71 Blood Pressure O2 Sat by Pulse 100 100 99 Oximetry 10/13/21 10/13/21 10/13/21 21:39 21:44 21:49 Pulse Rate 69 71 72 Blood Pressure O2 Sat by Pulse 100 100 100 Oximetry 10/13/21 10/13/21 10/13/21 21:54 21:59 22:04 Pulse Rate 72 73 89 Blood Pressure O2 Sat by Pulse 99 99 100 Oximetry 10/13/21 10/13/21 10/13/21 22:09 22:14 22:18 Pulse Rate 75 77 71 Blood Pressure 162/79 O2 Sat by Pulse 99 99 Oximetry 10/13/21 10/13/21 10/13/21 22:19 22:24 22:29 Pulse Rate 71 60 101 H Blood Pressure O2 Sat by Pulse 99 98 99 Oximetry 10/13/21 10/13/21 10/13/21 22:34 22:36 22:39 Pulse Rate 67 60 67 Blood Pressure 173/83 O2 Sat by Pulse 100 99 Oximetry 10/13/21 10/13/21 10/13/21 22:44 22:47 22:49 Pulse Rate 64 81 68 Blood Pressure 135/93 O2 Sat by Pulse 99 100 Oximetry 10/13/21 10/13/21 10/13/21 22:54 22:55 22:59 Pulse Rate 67 60 63 Blood Pressure 151/93 O2 Sat by Pulse 100 100 Oximetry 10/13/21 10/13/21 10/13/21 23:04 23:05 23:09 Pulse Rate 65 67 67 Blood Pressure 172/95 O2 Sat by Pulse 100 100 Oximetry 10/13/21 10/13/21 10/13/21 23:14 23:16 23:19 Pulse Rate 66 66 66 Blood Pressure 172/78 O2 Sat by Pulse 100 100 Oximetry 10/13/21 10/13/21 10/13/21 23:24 23:27 23:29 Pulse Rate 74 71 70 Blood Pressure 153/82 O2 Sat by Pulse 100 99 Oximetry 10/13/21 10/13/21 10/13/21 23:34 23:35 23:39 Pulse Rate 71 69 73 Blood Pressure 143/79 O2 Sat by Pulse 99 100 Oximetry 10/13/21 10/13/21 10/13/21 23:44 23:45 23:49 Pulse Rate 73 75 79 Blood Pressure 145/79 O2 Sat by Pulse 100 100 Oximetry 10/13/21 10/13/21 10/13/21 23:54 23:55 23:59 Pulse Rate 71 72 74 Blood Pressure 147/82 O2 Sat by Pulse 99 99 Oximetry 10/14/21 10/14/21 10/14/21 00:04 00:05 00:09 Pulse Rate 71 78 73 Blood Pressure 141/79 O2 Sat by Pulse 99 99 Oximetry 10/14/21 10/14/21 10/14/21 00:14 00:16 00:19 Pulse Rate 75 70 70 Blood Pressure 149/76 O2 Sat by Pulse 98 98 Oximetry 10/14/21 10/14/21 10/14/21 00:24 00:25 00:29 Pulse Rate 71 69 89 Blood Pressure 140/75 O2 Sat by Pulse 98 98 Oximetry 10/14/21 10/14/21 10/14/21 00:34 00:35 00:39 Pulse Rate 78 79 69 Blood Pressure 147/80 O2 Sat by Pulse 99 99 Oximetry 10/14/21 10/14/21 10/14/21 00:44 00:45 00:49 Pulse Rate 74 66 77 Blood Pressure 149/85 O2 Sat by Pulse 100 100 Oximetry 10/14/21 10/14/21 10/14/21 00:54 00:55 00:59 Pulse Rate 66 72 71 Blood Pressure 150/89 O2 Sat by Pulse 100 100 Oximetry 10/14/21 10/14/21 10/14/21 01:04 01:05 01:09 Pulse Rate 71 71 73 Blood Pressure 146/87 O2 Sat by Pulse 99 99 Oximetry 10/14/21 10/14/21 10/14/21 01:14 01:15 01:19 Pulse Rate 72 68 71 Blood Pressure 155/91 O2 Sat by Pulse 99 100 Oximetry 10/14/21 10/14/21 10/14/21 01:24 01:25 01:28 Pulse Rate 73 65 68 Blood Pressure 167/90 165/84 O2 Sat by Pulse 100 Oximetry 10/14/21 10/14/21 10/14/21 01:29 01:34 01:35 Pulse Rate 67 82 71 Blood Pressure 140/95 O2 Sat by Pulse 100 100 Oximetry 10/14/21 10/14/21 10/14/21 01:39 01:44 01:46 Pulse Rate 67 71 62 Blood Pressure 139/78 O2 Sat by Pulse 99 98 Oximetry 10/14/21 10/14/21 10/14/21 01:49 01:54 01:57 Pulse Rate 74 67 68 Blood Pressure 157/90 O2 Sat by Pulse 98 99 Oximetry 10/14/21 10/14/21 10/14/21 01:59 02:04 02:05 Pulse Rate 71 86 60 Blood Pressure 143/86 O2 Sat by Pulse 99 99 Oximetry 10/14/21 10/14/21 10/14/21 02:09 02:14 02:15 Pulse Rate 69 72 74 Blood Pressure 148/92 O2 Sat by Pulse 99 100 Oximetry 10/14/21 10/14/21 10/14/21 02:19 02:24 02:25 Pulse Rate 74 72 68 Blood Pressure 145/85 O2 Sat by Pulse 99 99 Oximetry 10/14/21 10/14/21 10/14/21 02:29 02:34 02:35 Pulse Rate 73 70 67 Blood Pressure 147/87 O2 Sat by Pulse 100 99 Oximetry 10/14/21 10/14/21 10/14/21 02:39 02:44 02:45 Pulse Rate 71 69 65 Blood Pressure 140/80 O2 Sat by Pulse 99 99 Oximetry 10/14/21 10/14/21 10/14/21 02:49 02:54 02:55 Pulse Rate 70 69 71 Blood Pressure 141/80 O2 Sat by Pulse 99 99 Oximetry 10/14/21 10/14/21 10/14/21 02:59 03:04 03:05 Pulse Rate 70 72 71 Blood Pressure 145/84 O2 Sat by Pulse 99 99 Oximetry 10/14/21 10/14/21 10/14/21 03:09 03:14 03:15 Pulse Rate 74 91 H 78 Blood Pressure 132/82 O2 Sat by Pulse 98 98 Oximetry 10/14/21 10/14/21 10/14/21 03:19 03:24 03:25 Pulse Rate 78 82 74 Blood Pressure 137/85 O2 Sat by Pulse 98 98 Oximetry 10/14/21 10/14/21 10/14/21 03:29 03:34 03:35 Pulse Rate 76 77 73 Blood Pressure 146/90 O2 Sat by Pulse 99 99 Oximetry 10/14/21 10/14/21 10/14/21 03:39 03:44 03:45 Pulse Rate 78 87 76 Blood Pressure 144/90 O2 Sat by Pulse 98 98 Oximetry 10/14/21 10/14/21 10/14/21 03:49 03:54 03:56 Pulse Rate 76 88 66 Blood Pressure 162/88 O2 Sat by Pulse 98 98 Oximetry 10/14/21 10/14/21 10/14/21 03:59 04:04 04:05 Pulse Rate 66 69 67 Blood Pressure 147/86 O2 Sat by Pulse 99 98 Oximetry 10/14/21 10/14/21 10/14/21 04:09 04:14 04:15 Pulse Rate 70 66 73 Blood Pressure 148/88 O2 Sat by Pulse 98 99 Oximetry 10/14/21 10/14/21 10/14/21 04:19 04:24 04:26 Pulse Rate 69 66 67 Blood Pressure 152/84 O2 Sat by Pulse 98 99 Oximetry 10/14/21 10/14/21 10/14/21 04:29 04:34 04:36 Pulse Rate 70 69 69 Blood Pressure 147/80 O2 Sat by Pulse 99 99 Oximetry 10/14/21 10/14/21 10/14/21 04:39 04:44 04:46 Pulse Rate 69 67 68 Blood Pressure 151/80 O2 Sat by Pulse 99 98 Oximetry 10/14/21 10/14/21 10/14/21 04:49 04:54 04:56 Pulse Rate 66 70 68 Blood Pressure 137/76 O2 Sat by Pulse 98 98 Oximetry 10/14/21 10/14/21 10/14/21 04:59 05:04 05:05 Pulse Rate 93 H 70 74 Blood Pressure 139/84 O2 Sat by Pulse 98 98 Oximetry 10/14/21 10/14/21 10/14/21 05:09 05:14 05:15 Pulse Rate 66 69 69 Blood Pressure 138/81 O2 Sat by Pulse 99 99 Oximetry 10/14/21 10/14/21 10/14/21 05:19 05:24 05:25 Pulse Rate 68 79 74 Blood Pressure 143/82 O2 Sat by Pulse 99 97 Oximetry 10/14/21 10/14/21 10/14/21 05:29 05:34 05:35 Pulse Rate 83 71 68 Blood Pressure 155/90 O2 Sat by Pulse 98 98 Oximetry 10/14/21 10/14/21 10/14/21 05:39 05:44 05:45 Pulse Rate 81 66 62 Blood Pressure 152/87 O2 Sat by Pulse 99 99 Oximetry 10/14/21 10/14/21 10/14/21 05:49 05:54 05:55 Pulse Rate 64 69 68 Blood Pressure 128/69 O2 Sat by Pulse 99 97 Oximetry 10/14/21 10/14/21 10/14/21 05:59 06:04 06:06 Pulse Rate 75 69 60 Blood Pressure 159/84 O2 Sat by Pulse 98 98 Oximetry 10/14/21 10/14/21 10/14/21 06:09 06:14 06:15 Pulse Rate 62 64 67 Blood Pressure 145/85 O2 Sat by Pulse 100 98 Oximetry 10/14/21 10/14/21 10/14/21 06:19 06:24 06:25 Pulse Rate 62 64 66 Blood Pressure 160/92 O2 Sat by Pulse 99 98 Oximetry 10/14/21 10/14/21 10/14/21 06:29 06:34 06:35 Pulse Rate 64 61 59 L Blood Pressure 160/94 O2 Sat by Pulse 99 100 Oximetry 10/14/21 10/14/21 10/14/21 06:39 06:44 06:45 Pulse Rate 68 68 68 Blood Pressure 148/85 O2 Sat by Pulse 100 99 Oximetry 10/14/21 10/14/21 10/14/21 06:49 06:54 06:55 Pulse Rate 66 64 64 Blood Pressure 145/85 O2 Sat by Pulse 99 98 Oximetry 10/14/21 10/14/21 10/14/21 06:59 07:04 07:05 Pulse Rate 66 66 66 Blood Pressure 151/87 O2 Sat by Pulse 99 98 Oximetry 10/14/21 10/14/21 10/14/21 07:09 07:14 07:15 Pulse Rate 64 72 74 Blood Pressure 142/85 O2 Sat by Pulse 98 97 Oximetry 10/14/21 10/14/21 10/14/21 07:19 07:24 07:26 Pulse Rate 72 63 70 Blood Pressure 152/90 O2 Sat by Pulse 98 96 Oximetry 10/14/21 10/14/21 10/14/21 07:29 07:34 07:35 Pulse Rate 85 77 65 Blood Pressure 144/88 O2 Sat by Pulse 97 97 Oximetry 10/14/21 10/14/21 10/14/21 07:39 07:44 07:45 Pulse Rate 68 75 72 Blood Pressure 145/87 O2 Sat by Pulse 98 98 Oximetry 0710/14/21 10/14/21 07:49 07:54 07:55 Pulse Rate 65 68 68 Blood Pressure 143/79 O2 Sat by Pulse 98 98 Oximetry 10/14/21 10/14/21 10/14/21 07:59 08:04 08:07 Pulse Rate 70 63 61 Blood Pressure 155/87 O2 Sat by Pulse 98 100 Oximetry 10/14/21 10/14/21 10/14/21 08:09 08:14 08:15 Pulse Rate 65 82 64 Blood Pressure 156/89 O2 Sat by Pulse 99 99 Oximetry 10/14/21 10/14/21 10/14/21 08:19 08:24 08:25 Pulse Rate 66 67 68 Blood Pressure 157/84 O2 Sat by Pulse 99 99 Oximetry 10/14/21 10/14/21 10/14/21 08:29 08:34 08:35 Pulse Rate 79 65 74 Blood Pressure 154/88 O2 Sat by Pulse 99 100 Oximetry 10/14/21 10/14/21 10/14/21 08:39 08:44 08:45 Pulse Rate 67 66 79 Blood Pressure 158/91 O2 Sat by Pulse 99 99 Oximetry 10/14/21 10/14/21 10/14/21 08:49 08:54 08:55 Pulse Rate 74 77 75 Blood Pressure 144/70 O2 Sat by Pulse 100 98 Oximetry 10/14/21 10/14/21 10/14/21 08:59 09:04 09:07 Pulse Rate 73 69 65 Blood Pressure 174/82 O2 Sat by Pulse 97 98 Oximetry 10/14/21 10/14/21 09:09 09:14 Pulse Rate 67 77 Blood Pressure O2 Sat by Pulse 98 99 Oximetry - Exam Breasts: deferred Cardiovascular: Regular rate Lungs: Normal air movement Abdomen: Present: other (gravid) FHR: category 1 Uterine Contraction Monitor Mode: External Uterine Contraction Frequency (min): 7-8 Uterine Contraction Pattern: Irregular Uterine Tone Measurement Phase: Resting Uterine Contraction Intensity: Mild - Labs Labs: Abnormal Labs 10/11/21 10/11/21 10/13/21 22:29 22:29 05:47 RBC 3.13 L Hgb 9.2 L Hct 28.2 L Creatinine 0.5 L Uric Acid 2.9 L Magnesium 3.90 H Lactate Dehydrogenase 204 H 10/13/21 10/13/21 10/13/21 13:31 18:24 22:28 RBC Hgb Hct Creatinine Uric Acid Magnesium 5.50 H 16.80 H 6.00 H Lactate Dehydrogenase Laboratory Results - last 24 hr 10/13/21 10/13/21 10/13/21 13:31 18:24 22:28 Magnesium 5.50 H 16.80 H 6.00 H
[2021-10-14] MEDS: MAGNESIUM SULFATE 40GM/1000ML 40 GM/1,000 ML BAG IV SCH (13:51)
[2021-10-14] MEDS: AMPICILLIN/NS 1 GM/50 ML 1 GM/50 ML BAG IV SCH ×2 (13:53→17:55)
[2021-10-14] MEDS: LACTATED RINGERS 1,000 ML IV SCH (13:57)
[2021-10-14] MEDS: ONDANSETRON 4 MG/2 ML INJ IV PRN (16:32)
[2021-10-14] MEDS: ACETAMINOPHEN 325 MG TAB PO PRN (16:35)
--- NOTE | 2021-10-14 18:39 | Event Note ---
Date: 10/14/21 Category 1 tracing. Last cytotec dose held secondary to >6 ctxs in 1 hour. Cervical exam unchanged. Will resume cytotec if ctxs decrease.
[2021-10-14] MEDS: hydrALAZINE 20 MG/1 ML INJ IV PRN (21:56)
[2021-10-14] MEDS: BUTORPHANOL 2 MG/1 ML INJ IV PRN (23:31)
[2021-10-15] MEDS: miSOPROStol 100 MCG TAB PO PRN ×2 (00:45→05:27)
[2021-10-15] MEDS: AMPICILLIN/NS 1 GM/50 ML 1 GM/50 ML BAG IV SCH ×3 (04:04→16:06)
[2021-10-15] MEDS: fentaNYL 100 MCG/2 ML INJ IV PRN ×2 (04:13→06:30)
[2021-10-15] MEDS: MAGNESIUM SULFATE 40GM/1000ML 40 GM/1,000 ML BAG IV SCH ×2 (07:08→20:43)
[2021-10-15] MEDS: BUTORPHANOL 2 MG/1 ML INJ IV PRN (09:04)
[2021-10-15] MEDS: hydrALAZINE 20 MG/1 ML INJ IV PRN (09:05)
[2021-10-15] MEDS ORDERED: ePHEDrine SULFATE 50 MG/1 ML INJ IV PRN (09:24)
[2021-10-15] MEDS ORDERED: NALOXONE 0.4 MG/1 ML INJ IV PRN ×3 (09:24→18:56)
[2021-10-15] MEDS ORDERED: fentaNYL-BUPIV 2 MCG/ML-0.125% 200 MCG/100 ML BAG EPIDURAL SCH ×2 (09:24→19:00)
[2021-10-15] MEDS ORDERED: BUPIVACAINE/PF (0.25%) 2.5 MG/ML 10 ML VIAL INFILTRATI ONE (09:38)
[2021-10-15] MEDS: PRENATAL VIT27-FE FUMARATE-FOLIC ACID VIT TAB PO SCH (10:18)
[2021-10-15] MEDS ORDERED: LIDOCAINE MPF (2%) 20 MG/1 ML VIAL 5 ML ONE (12:41)
--- NOTE | 2021-10-15 13:12 | Progress Note ---
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 Pt screaming and writhing in pain. She is asking for pain medicine. Patient reports: new complaints (Pt tearful stating, "The medicine is not doing anything and I hurt, my vagina hurts and I just want it to be over". Reassurance given to pt and explained that the induction process can be lengthly as we are attempting to induce labor that would not have otherwise occured yet. ), movement normal, contractions, no loss of fluid, no vaginal bleeding Objective - Vital Signs Vital Signs: Vital Signs - 12hr 10/15/21 10/15/21 10/15/21 01:15 01:16 01:20 Temperature Pulse Rate 64 64 64 Respiratory Rate Blood Pressure 154/87 O2 Sat by Pulse 97 97 Oximetry O2 Sat by Pulse Oximetry [ Bilateral Throughout] 10/15/21 10/15/21 10/15/21 01:25 01:30 01:35 Temperature Pulse Rate 60 70 67 Respiratory Rate Blood Pressure O2 Sat by Pulse 98 98 99 Oximetry O2 Sat by Pulse Oximetry [ Bilateral Throughout] 10/15/21 10/15/21 10/15/21 01:40 01:45 01:46 Temperature Pulse Rate 64 65 61 Respiratory Rate Blood Pressure 155/85 O2 Sat by Pulse 99 100 Oximetry O2 Sat by Pulse Oximetry [ Bilateral Throughout] 10/15/21 10/15/21 10/15/21 01:50 01:55 02:00 Temperature Pulse Rate 69 65 67 Respiratory Rate Blood Pressure O2 Sat by Pulse 98 97 97 Oximetry O2 Sat by Pulse Oximetry [ Bilateral Throughout] 10/15/21 10/15/21 10/15/21 02:05 02:10 02:15 Temperature Pulse Rate 65 65 67 Respiratory Rate Blood Pressure 136/84 O2 Sat by Pulse 97 97 97 Oximetry O2 Sat by Pulse Oximetry [ Bilateral Throughout] 10/15/21 10/15/2110/15/22 02:20 02:25 02:30 Temperature Pulse Rate 66 65 75 Respiratory Rate Blood Pressure O2 Sat by Pulse 97 97 98 Oximetry O2 Sat by Pulse Oximetry [ Bilateral Throughout] 10/15/21 10/15/21 10/15/21 02:35 02:40 02:45 Temperature Pulse Rate 67 66 67 Respiratory Rate Blood Pressure O2 Sat by Pulse 99 99 100 Oximetry O2 Sat by Pulse Oximetry [ Bilateral Throughout] 10/15/21 10/15/21 10/15/21 02:48 02:50 02:55 Temperature Pulse Rate 71 63 65 Respiratory Rate Blood Pressure 159/92 O2 Sat by Pulse 100 99 Oximetry O2 Sat by Pulse Oximetry [ Bilateral Throughout] 10/15/21 10/15/21 10/15/21 03:00 03:05 03:10 Temperature Pulse Rate 64 77 65 Respiratory Rate Blood Pressure O2 Sat by Pulse 99 98 98 Oximetry O2 Sat by Pulse Oximetry [ Bilateral Throughout] 10/15/21 10/15/21 10/15/21 03:15 03:18 03:20 Temperature Pulse Rate 62 60 60 Respiratory Rate Blood Pressure 159/82 O2 Sat by Pulse 100 99 Oximetry O2 Sat by Pulse Oximetry [ Bilateral Throughout] 10/15/21 10/15/21 10/15/21 03:25 03:30 03:35 Temperature Pulse Rate 63 66 65 Respiratory Rate Blood Pressure O2 Sat by Pulse 98 97 98 Oximetry O2 Sat by Pulse Oximetry [ Bilateral Throughout] 10/15/21 10/15/21 10/15/21 03:40 03:45 03:50 Temperature Pulse Rate 63 66 68 Respiratory Rate Blood Pressure 140/83 O2 Sat by Pulse 98 98 98 Oximetry O2 Sat by Pulse Oximetry [ Bilateral Throughout] 10/15/21 10/15/21 10/15/21 03:55 04:00 04:05 Temperature Pulse Rate 65 75 63 Respiratory Rate Blood Pressure O2 Sat by Pulse 98 98 98 Oximetry O2 Sat by Pulse Oximetry [ Bilateral Throughout] 10/15/21 10/15/21 10/15/21 04:10 04:15 04:20 Temperature Pulse Rate 65 60 65 Respiratory Rate Blood Pressure 142/76 O2 Sat by Pulse 98 97 96 Oximetry O2 Sat by Pulse Oximetry [ Bilateral Throughout] 10/15/21 10/15/21 10/15/21 04:25 04:30 04:35 Temperature Pulse Rate 65 63 64 Respiratory Rate Blood Pressure O2 Sat by Pulse 96 97 97 Oximetry O2 Sat by Pulse Oximetry [ Bilateral Throughout] 10/15/21 10/15/21 10/15/21 04:40 04:45 04:50 Temperature Pulse Rate 63 61 64 Respiratory Rate Blood Pressure 131/72 O2 Sat by Pulse 98 97 97 Oximetry O2 Sat by Pulse Oximetry [ Bilateral Throughout] 10/15/21 10/15/21 10/15/21 04:55 05:00 05:05 Temperature Pulse Rate 61 62 63 Respiratory Rate Blood Pressure O2 Sat by Pulse 98 98 98 Oximetry O2 Sat by Pulse Oximetry [ Bilateral Throughout] 10/15/21 10/15/21 10/15/21 05:10 05:15 05:20 Temperature Pulse Rate 62 65 65 Respiratory Rate Blood Pressure 139/82 O2 Sat by Pulse 98 99 99 Oximetry O2 Sat by Pulse Oximetry [ Bilateral Throughout] 10/15/21 10/15/21 10/15/21 05:25 05:30 05:35 Temperature Pulse Rate 63 60 62 Respiratory Rate Blood Pressure O2 Sat by Pulse 98 99 98 Oximetry O2 Sat by Pulse Oximetry [ Bilateral Throughout] 10/15/21 10/15/21 10/15/21 05:40 05:45 05:50 Temperature Pulse Rate 63 62 60 Respiratory Rate Blood Pressure 142/84 O2 Sat by Pulse 98 99 99 Oximetry O2 Sat by Pulse Oximetry [ Bilateral Throughout] 10/15/21 10/15/21 10/15/21 05:55 06:00 06:05 Temperature Pulse Rate 61 63 63 Respiratory Rate Blood Pressure O2 Sat by Pulse 98 98 99 Oximetry O2 Sat by Pulse Oximetry [ Bilateral Throughout] 10/15/21 10/15/21 10/15/21 06:10 06:15 06:16 Temperature Pulse Rate 62 61 62 Respiratory Rate Blood Pressure 154/87 O2 Sat by Pulse 98 98 Oximetry O2 Sat by Pulse Oximetry [ Bilateral Throughout] 10/15/21 10/15/21 10/15/21 06:20 06:25 06:30 Temperature Pulse Rate 65 62 73 Respiratory Rate Blood Pressure O2 Sat by Pulse 98 98 98 Oximetry O2 Sat by Pulse Oximetry [ Bilateral Throughout] 10/15/21 10/15/21 10/15/21 06:33 06:35 06:40 Temperature Pulse Rate 78 80 73 Respiratory Rate Blood Pressure O2 Sat by Pulse 94 97 97 Oximetry O2 Sat by Pulse Oximetry [ Bilateral Throughout] 10/15/21 10/15/21 10/15/21 06:45 06:50 06:55 Temperature Pulse Rate 64 72 55 L Respiratory Rate Blood Pressure 121/80 O2 Sat by Pulse 98 98 98 Oximetry O2 Sat by Pulse Oximetry [ Bilateral Throughout] 10/15/21 10/15/21 10/15/21 07:00 07:05 07:10 Temperature Pulse Rate 63 63 57 L Respiratory Rate Blood Pressure O2 Sat by Pulse 97 97 98 Oximetry O2 Sat by Pulse Oximetry [ Bilateral Throughout] 10/15/21 10/15/21 10/15/21 07:14 07:15 07:16 Temperature 97.6 F Pulse Rate 59 L 59 L Respiratory 18 Rate Blood Pressure 154/83 O2 Sat by Pulse 98 98 Oximetry O2 Sat by Pulse Oximetry [ Bilateral Throughout] 10/15/21 10/15/21 10/15/21 07:20 07:21 07:25 Temperature Pulse Rate 59 L 59 L Respiratory Rate Blood Pressure O2 Sat by Pulse 100 100 Oximetry O2 Sat by Pulse 98 Oximetry [ Bilateral Throughout] 10/15/21 10/15/21 10/15/21 07:30 07:35 07:40 Temperature Pulse Rate 66 65 63 Respiratory Rate Blood Pressure O2 Sat by Pulse 100 100 100 Oximetry O2 Sat by Pulse Oximetry [ Bilateral Throughout] 10/15/21 10/15/21 10/15/21 07:45 07:46 07:50 Temperature Pulse Rate 63 63 64 Respiratory Rate Blood Pressure 185/100 O2 Sat by Pulse 100 100 Oximetry O2 Sat by Pulse Oximetry [ Bilateral Throughout] 10/15/21 10/15/21 10/15/21 07:55 08:00 08:05 Temperature Pulse Rate 61 66 63 Respiratory Rate Blood Pressure O2 Sat by Pulse 100 100 100 Oximetry O2 Sat by Pulse Oximetry [ Bilateral Throughout] 10/15/21 10/15/21 10/15/21 08:10 08:15 08:16 Temperature Pulse Rate 78 64 62 Respiratory Rate Blood Pressure 175/84 O2 Sat by Pulse 100 100 Oximetry O2 Sat by Pulse Oximetry [ Bilateral Throughout] 10/15/21 10/15/21 10/15/21 08:20 08:25 08:30 Temperature Pulse Rate 72 67 73 Respiratory Rate Blood Pressure O2 Sat by Pulse 100 100 100 Oximetry O2 Sat by Pulse Oximetry [ Bilateral Throughout] 10/15/21 10/15/21 10/15/21 08:35 08:40 08:45 Temperature Pulse Rate 77 71 65 Respiratory Rate Blood Pressure O2 Sat by Pulse 100 100 100 Oximetry O2 Sat by Pulse Oximetry [ Bilateral Throughout] 10/15/21 10/15/21 10/15/21 08:47 08:50 08:55 Temperature Pulse Rate 96 H 68 63 Respiratory Rate Blood Pressure 174/87 O2 Sat by Pulse 94 100 100 Oximetry O2 Sat by Pulse Oximetry [ Bilateral Throughout] 10/15/21 10/15/21 10/15/21 09:00 09:02 09:05 Temperature Pulse Rate 67 65 68 Respiratory Rate Blood Pressure 149/85 174/87 O2 Sat by Pulse 100 100 Oximetry O2 Sat by Pulse Oximetry [ Bilateral Throughout] 10/15/21 10/15/21 10/15/21 09:10 09:15 09:17 Temperature Pulse Rate 68 74 79 Respiratory Rate Blood Pressure O2 Sat by Pulse 100 98 94 Oximetry O2 Sat by Pulse Oximetry [ Bilateral Throughout] 10/15/21 10/15/21 10/15/21 09:18 09:20 09:25 Temperature Pulse Rate 82 80 78 Respiratory Rate Blood Pressure 158/96 O2 Sat by Pulse 90 96 Oximetry O2 Sat by Pulse Oximetry [ Bilateral Throughout] 10/15/21 10/15/21 10/15/21 09:30 09:32 09:35 Temperature Pulse Rate 72 73 69 Respiratory Rate Blood Pressure 164/78 O2 Sat by Pulse 98 99 Oximetry O2 Sat by Pulse Oximetry [ Bilateral Throughout] 10/15/21 10/15/21 10/15/21 09:37 09:40 09:44 Temperature Pulse Rate 66 71 73 Respiratory Rate Blood Pressure 139/79 154/78 O2 Sat by Pulse 98 Oximetry O2 Sat by Pulse Oximetry [ Bilateral Throughout] 10/15/21 10/15/21 10/15/21 09:46 09:47 09:51 Temperature Pulse Rate 75 71 69 Respiratory Rate Blood Pressure 153/82 133/76 O2 Sat by Pulse 96 95 Oximetry O2 Sat by Pulse Oximetry [ Bilateral Throughout] 10/15/21 10/15/21 10/15/21 09:56 09:57 10:01 Temperature Pulse Rate 68 70 63 Respiratory Rate Blood Pressure 124/79 120/77 O2 Sat by Pulse 95 94 93 Oximetry O2 Sat by Pulse Oximetry [ Bilateral Throughout] 10/15/21 10/15/21 10/15/21 10:03 10:06 10:08 Temperature Pulse Rate 65 66 68 Respiratory Rate Blood Pressure 128/75 O2 Sat by Pulse 94 96 94 Oximetry O2 Sat by Pulse Oximetry [ Bilateral Throughout] 10/15/21 10/15/21 10/15/21 10:11 10:16 10:17 Temperature Pulse Rate 69 68 68 Respiratory Rate Blood Pressure 124/65 125/74 O2 Sat by Pulse 95 95 Oximetry O2 Sat by Pulse Oximetry [ Bilateral Throughout] 10/15/21 10/15/21 10/15/21 10:21 10:22 10:26 Temperature Pulse Rate 69 72 72 Respiratory Rate Blood Pressure 123/64 127/66 O2 Sat by Pulse 95 94 95 Oximetry O2 Sat by Pulse Oximetry [ Bilateral Throughout] 10/15/21 10/15/21 10/15/21 10:31 10:36 10:41 Temperature Pulse Rate 72 75 71 Respiratory Rate Blood Pressure 130/69 128/71 O2 Sat by Pulse 95 96 96 Oximetry O2 Sat by Pulse Oximetry [ Bilateral Throughout] 10/15/21 10/15/21 10/15/21 10:42 10:46 10:49 Temperature Pulse Rate 73 73 71 Respiratory 18 Rate Blood Pressure 129/69 127/69 O2 Sat by Pulse 95 Oximetry O2 Sat by Pulse Oximetry [ Bilateral Throughout] 10/15/21 10/15/21 10/15/21 10:51 10:53 10:56 Temperature Pulse Rate 71 73 73 Respiratory Rate Blood Pressure 130/72 O2 Sat by Pulse 95 95 Oximetry O2 Sat by Pulse Oximetry [ Bilateral Throughout] 10/15/21 10/15/21 10/15/21 10:57 11:01 11:06 Temperature Pulse Rate 74 72 72 Respiratory Rate Blood Pressure 132/74 135/74 O2 Sat by Pulse 95 95 Oximetry O2 Sat by Pulse Oximetry [ Bilateral Throughout] 10/15/21 10/15/21 10/15/21 11:07 11:08 11:11 Temperature Pulse Rate 80 73 71 Respiratory Rate Blood Pressure 133/76 135/74 O2 Sat by Pulse 94 95 Oximetry O2 Sat by Pulse Oximetry [ Bilateral Throughout] 07/22/22 07/22/22 07/22/22 11:16 11:17 11:21 Temperature Pulse Rate 74 72 74 Respiratory Rate Blood Pressure 132/76 O2 Sat by Pulse 97 96 Oximetry O2 Sat by Pulse Oximetry [ Bilateral Throughout] 10/15/21 10/15/21 10/15/21 11:23 11:26 11:28 Temperature Pulse Rate 74 72 73 Respiratory Rate Blood Pressure 140/79 135/75 O2 Sat by Pulse 95 Oximetry O2 Sat by Pulse Oximetry [ Bilateral Throughout] 10/15/21 10/15/21 10/15/21 11:31 11:36 11:41 Temperature Pulse Rate 74 73 81 Respiratory Rate Blood Pressure 140/78 139/77 141/78 O2 Sat by Pulse 96 95 95 Oximetry O2 Sat by Pulse Oximetry [ Bilateral Throughout] 10/15/21 10/15/21 10/15/21 11:46 11:47 11:51 Temperature Pulse Rate 78 76 77 Respiratory Rate Blood Pressure 144/77 O2 Sat by Pulse 95 97 Oximetry O2 Sat by Pulse Oximetry [ Bilateral Throughout] 10/15/21 10/15/21 10/15/21 11:52 11:56 11:58 Temperature 97 F L Pulse Rate 69 70 Respiratory 18 Rate Blood Pressure 138/72 134/76 O2 Sat by Pulse 96 97 Oximetry O2 Sat by Pulse Oximetry [ Bilateral Throughout] 10/15/21 10/15/21 10/15/21 12:01 12:06 12:11 Temperature Pulse Rate 70 68 73 Respiratory Rate Blood Pressure 135/74 135/72 137/77 O2 Sat by Pulse 96 96 96 Oximetry O2 Sat by Pulse Oximetry [ Bilateral Throughout] 10/15/21 10/15/21 10/15/21 12:16 12:21 12:26 Temperature Pulse Rate 75 74 70 Respiratory Rate Blood Pressure O2 Sat by Pulse 96 96 96 Oximetry O2 Sat by Pulse Oximetry [ Bilateral Throughout] 10/15/21 10/15/21 10/15/21 12:31 12:36 12:41 Temperature Pulse Rate 74 72 73 Respiratory Rate Blood Pressure O2 Sat by Pulse 97 96 96 Oximetry O2 Sat by Pulse Oximetry [ Bilateral Throughout] 10/15/21 10/15/21 10/15/21 12:43 12:46 12:51 Temperature Pulse Rate 78 73 72 Respiratory Rate Blood Pressure 144/78 O2 Sat by Pulse 96 96 Oximetry O2 Sat by Pulse Oximetry [ Bilateral Throughout] 0710/15/21 10/15/21 12:56 13:01 13:06 Temperature Pulse Rate 70 69 71 Respiratory Rate Blood Pressure O2 Sat by Pulse 96 96 96 Oximetry O2 Sat by Pulse Oximetry [ Bilateral Throughout] - Exam Breasts: deferred Abdomen: Present: soft (gravid ) Uterus: Present: normal (gravid ) FHR: category 2 Uterine Contraction Monitor Mode: External Cervical Dilatation: 1.5 Cervical Effacement Percentage: 70 station: -2 Uterine Contraction Pattern: Irregular Uterine Tone Measurement Phase: Resting Uterine Contraction Intensity: Moderate Extremities: edema - Labs Labs: Abnormal Labs 10/11/21 10/11/21 10/13/21 22:29 22:29 05:47 RBC 3.13 L Hgb 9.2 L Hct 28.2 L Creatinine 0.5 L Uric Acid 2.9 L Magnesium 3.90 H Lactate Dehydrogenase 204 H 10/13/21 10/13/21 10/13/21 13:31 18:24 22:28 RBC Hgb Hct Creatinine Uric Acid Magnesium 5.50 H 16.80 H 6.00 H Lactate Dehydrogenase 10/14/21 10/14/21 10/15/21 12:42 18:25 00:11 RBC Hgb Hct Creatinine Uric Acid Magnesium 6.20 H 6.10 H 5.90 H Lactate Dehydrogenase 10/15/21 05:41 RBC Hgb Hct Creatinine Uric Acid Magnesium 6.60 H Lactate Dehydrogenase Laboratory Results - last 24 hr 10/14/21 10/14/21 10/15/21 12:42 18:25 00:11 Magnesium 6.20 H 6.10 H 5.90 H 10/15/21 05:41 Magnesium 6.60 H
--- NOTE | 2021-10-15 15:38 | Event Note ---
Date: 10/15/21 Pt reports that she is having intractable RLQ pain even with multiple redoses of the epidural. Pt considers that she would like a section. Anesthesia contacted to redo the epidural. If unable to obtain adequate pain relief, plan to proceed to with section under general anesthesia. Continue to monitor closely.
--- NOTE | 2021-10-15 15:59 | Event Note ---
Date: 10/15/21 Pt now comfortable with epidural placement. Category II tracing. Cervix 7/100/0. Continue routine intrapartum care. Closely monitor maternal and status.
[2021-10-15] MEDS ORDERED: FAMOTIDINE 20 MG/2 ML INJ IV ONE (16:41)
[2021-10-15] MEDS ORDERED: BICITRA ORAL LIQD 30ML PO ONE (16:41)
[2021-10-15] MEDS ORDERED: METOCLOPRAMIDE 10 MG/2 ML INJ IV ONE (16:41)
[2021-10-15] MEDS ORDERED: ceFAZolin/Water 2 GM/20 ML 2 GM/20 ML SYRINGE IV NR (16:42)
[2021-10-15] MEDS ORDERED: LACTATED RINGERS 1,000 ML IV SCH (16:45)
[2021-10-15] MEDS ORDERED: OXYTOCIN DRIP 30 UNITS/500 ML BAG IV SCH ×2 (17:00→19:00)
--- NOTE | 2021-10-15 17:02 | Anesthesia Consultation ---
Anesthesia Consult and Med Hx Date of service: 10/15/21 - Airway Anesthetic Teeth Evaluation: Good ROM Head & Neck: Adequate Mental/Hyoid Distance: Adequate Mallampati Class: Class II Intubation Access Assessment: Probably Good - Pulmonary Exam CTA: Yes - Cardiac Exam Cardiac Exam: RRR - Pre-Operative Health Status ASA Pre-Surgery Classification: ASA2 Proposed Anesthetic Plan: Epidural - Pulmonary Hx Smoking: No Hx Asthma: Yes (last episode a week ago) Hx Respiratory Symptoms: No SOB: No COPD: No Home Oxygen Therapy: No Hx Pneumonia: No Hx Sleep Apnea: No - Cardiovascular System Hx Hypertension: No Hx Coronary Artery Disease: No Hx Heart Attack/AMI: No Hx Angina: No Hx Percutaneous Transluminal Coronary Angioplasty (PTCA): No Hx Cardia Arrhythmia: No Hx Pacemaker: No Hx Internal Defibrillator: No Hx Valvular Heart Disease: No Hx Heart Murmur: No Hx Peripheral Vascular Disease: No - Central Nervous System Hx Neuromuscular Disorder: No Hx Seizures: No CVA: No Hx Back Pain: No Hx Psychiatric Problems: No - Gastrointestinal Hx Ulcer: No Hx Gastroesophageal Reflux Disease: No - Endocrine Hx Renal Disease: No Hx End Stage Renal Disease: No Hx Cirrhosis: No Hx Liver Disease: No Hx Insulin Dependent Diabetes: No Hx Non-Insulin Dependent Diabetes: No Hx Thyroid Disease: No Hx Hypothyroidism: No Hx Hyperthyroidism: No - Hematic Hx Anemia: No Hx Sickle Cell Disease: No - Other Systems Hx Alcohol Use: No Hx Substance Use: No Hx Cancer: No Hx Obesity: No
--- NOTE | 2021-10-15 17:03 | Anesthesia Day of Surgery ---
Anesthesia Day of Surgery - Day of Surgery Patient Examined: Yes Patient H&P Reviewed: Yes Patient is NPO: Yes Beta Blockers: No Cardiac Clearance: No Pulmonary Clearance: No Kirby's Test: N/A
--- NOTE | 2021-10-15 17:06 | Progress Note ---
Labor Epidural - Labor Epidural Start Time: 09:34 Stop Time: 09:39 Performed by:: SELAM MONTOYA Procedure: Epidural Requested for Labor Pain. H&P and PT Chart reviewed and consent obtained. Time out performed and the procedure was explained, all questions answered. Patient was placed in a sitting position with monitors applied. The PTs back was prepped and draped in usual sterile fashion. The Skin was localized with 3 mL of 1% lidocaine at L3-L4. A 17-gauge Touhy epidural needle was advanced to GABE with saline at 7 cm and no blood/CSF was noted via epidural needle. Epidural catheter was advanced to 12 cm. There was negative aspiration for blood and CSF in the catheter and negative response to a test dose of 3 ml 1.5% lidocaine w/ Epi and a sterile dressing was applied Patient tolerated the procedure well and there were no immediate complications noted.
[2021-10-15] MEDS ORDERED: fentaNYL 100 MCG/2 ML INJ ONE ×2 (17:30→17:31)
[2021-10-15] MEDS ORDERED: OXYTOCIN 10 UNIT/1 ML INJ ONE (17:41)
[2021-10-15] MEDS ORDERED: MORPHINE 4 MG/1 ML INJ IV PRN (18:30)
[2021-10-15] MEDS ORDERED: ONDANSETRON 4 MG/2 ML INJ IV PRN (18:30)
[2021-10-15] MEDS ORDERED: HYDROmorphone 1 MG/1 ML INJ IV PRN ×2 (18:30)
[2021-10-15] MEDS ORDERED: PROMETHAZINE 25 MG RECT SUPP PR PRN (18:30)
[2021-10-15] MEDS ORDERED: PROMETHAZINE 25 MG TAB PO PRN (18:30)
[2021-10-15] MEDS ORDERED: SODIUM CHLORIDE 0.9% 500 ML 1,000 ML ONE (18:33)
[2021-10-15] MEDS ORDERED: SODIUM CHLORIDE 0.9% 1000 ML 1,000 ML ONE (18:33)
[2021-10-15] MEDS ORDERED: LACTATED RINGERS 1,000 ML ONE (18:33)
[2021-10-15] MEDS ORDERED: PHENYLEPHRINE/NS 1,000 MCG/10 ML SYRINGE (OR USE) IV ONE (18:33)
[2021-10-15] MEDS ORDERED: TRANEXAMIC ACID 1,000 MG/10 ML ONE (18:33)
[2021-10-15] MEDS ORDERED: ePHEDrine SULFATE 50 MG/1 ML INJ ONE (18:33)
--- NOTE | 2021-10-15 18:48 | Procedure Note ---
OB Delivery Note - Delivery Date of Delivery: 10/15/21 Surgeon: JACQUIE OVALLE Estimated blood loss: other (1600 mL) - Section Preop diagnosis: nonreassuring FHR tracing Postop diagnosis: same section procedure: section, primary low transverse Disposition: PACU Complications: intra-op hemorrhage, uterine atony Narrative: Please see delivery note - Infant A at 1 minute: 6 at 5 minutes: 7 Gender: Female (2460g (5lb 7oz) @ 1725 pm)
[2021-10-15] MEDS ORDERED: WITCH HAZEL/ GLYCERIN PAD TP PRN (18:56)
[2021-10-15] MEDS ORDERED: SIMETHICONE 80 MG CHEW TAB PO PRN (18:56)
[2021-10-15] MEDS ORDERED: MAGNESIUM HYDROXIDE (MOM) ORAL LIQD UDC PO PRN (18:56)
[2021-10-15] MEDS ORDERED: HYDROmorphone 0.5 MG/0.5 ML INJ IV PRN (18:56)
[2021-10-15] MEDS ORDERED: LANOLIN/ZINC/DIMETHICONE (LANSINOH) 7 GM TP PRN (18:56)
--- NOTE | 2021-10-15 18:56 | Operative Report ---
Operative Report Operative Report: Date of procedure: October 15, 2021 Preoperative diagnosis: 1) IUP at 35w4d 2) CHTN with superimposed preeclampsia 3) Nonreassuring heart tones- repetitive late decelerations Postoperative diagnosis: Same 4) Uterine atony 5) Intraoperative Hemorrhage Procedure: Primary low transverse section Surgeon: Mirna Dillard M.D. Anesthesia: Regional Findings: 1) Viable female , Apgars 6 and 7, weight 2460 g, (5 lb 7 oz) in cephalic presentation. 2) Normal-appearing uterus ovaries and tubes Estimated blood loss: 1600 mL IV fluids:1700 mL Colloid: 1st of 2 units of PRBCs started in OR Urine output: 100 mL, blood tinged prior to and at the end of the procedure Drains: [place] to gravity Specimens: Placenta to pathology Complications:None. Counts correct x 3 Disposition: Stable to PACU Indication for procedure: Pt is a 31-year-old -[place] female 4 para 0 at 35 weeks 4 days who was admitted for chronic hypertension with superimposed preeclampsia. She progressed to 9 cm and began to have repetitive late decelerations. Decision was made to proceed with section. Operation in detail: After the risks, benefits, alternatives and complications were explained to the patient she gave informed consent for the procedure. She was subsequently taken to the operating room where regional anesthesia was noted to be adequate. She was placed in the dorsal supine position with leftward tilt and prepped and draped in a normal sterile fashion. heart tones were noted prior to incision. A timeout was performed. A Pfannenstiel skin incision was made with the knife and carried down to the layer of the fascia with the Bovie. The fascia was incised in the midline and the fascial incision was extended bilaterally with the Bovie. The fascial incision was then stretched. The rectus muscles were then in the midline for adequate visualization. The peritoneum was then entered bluntly. The peritoneal incision was extended with good visualization of the bladder. The peritoneal incision was then stretched. An Jay retractor was placed. The b ladder blade was then placed. The vesicouterine peritoneum was grasped with smooth pick ups and incised with Metzenbaum scissors. A bladder flap was then created digitally and the bladder blade was replaced. A transverse incision was made in the lower uterine segment with a knife and extended bilaterally with the bandage scissors. Amniotomy was performed with egress of clear fluid. head delivered with some difficulty, followed by shoulders and body. bulb suctioned at delivery. Cord clamped and cut. handed to NICU staff in attendance. Cord blood was collected. The placenta was then delivered manually. The uterus was then exteriorized and cleared of all clots and debris. The hysterotomy was then reapproximated with 0 Monocryl in a running locked fashion. TXA was administered by anesthesia. Pitocin infusing. The hysterotomy was inspected and hemostasis was noted. The gutters were irrigated and cleared of all clots and debris. The uterus was placed back into the peritoneal cavity. The hysterotomy was again inspected and noted to be hemostatic. Surgicel was placed over the hysterotomy. The Jay retractor was removed. The peritoneum was reapproximated with 0 Monocryl in a running fashion incorporating the rectus muscles. Surgicel was placed over the rectus muscles. The fascia was reapproximated with 0 Vicryl in a running fashion. The subcutaneous tissue was reapproximated with 3-0 Vicryl in a running fashion. The skin was reapproximated with [place]. The incision was then covered with steri strips and a pressure dressing. The procedure was then ended. The patient tolerated the procedure well and was taken to the PACU in stable condition. All instrument, lap, and needle counts were correct 3. Misoprostol 800 mcg was placed per rectum at the end of the case.
[2021-10-15] MEDS ORDERED: MAGNESIUM SULFATE 4 GM/100 ML BAG IV ONE (19:00)
[2021-10-15] MEDS ORDERED: D5W/LACTATED RINGERS 1,000 ML IV SCH (19:00)
[2021-10-15] MEDS ORDERED: ceFAZolin/NS 1 GM/50 ML 1 GM/50 ML BAG IV SCH (19:00)
[2021-10-15] MEDS ORDERED: MAGNESIUM SULFATE 40GM/1000ML 40 GM/1,000 ML BAG IV SCH (19:00)
[2021-10-15] MEDS: KETOROLAC 30 MG/1 ML INJ IV SCH (20:12)
--- NOTE | 2021-10-15 21:18 | Post Anesthesia Evaluation ---
- Post Anesthesia Evaluation Patient Participated: Yes Airway Patent: Yes Stable Respiratory Function: Yes Nausea/Vomiting: No Temp > 96.8F: Yes Pain Manageable: Yes Adequeate Hydration: Yes Anesthesia Complications: No Block Receding Appropriately: Yes Patient on Ventilator: No
[2021-10-16] MEDS: fentaNYL 100 MCG/2 ML INJ IV PRN (01:09)
[2021-10-16] MEDS: HYDROmorphone 0.5 MG/0.5 ML INJ IV PRN ×2 (05:26→23:15)
[2021-10-16] MEDS ORDERED: ceFAZolin/NS 1 GM/50 ML 1 GM/50 ML BAG IV ONE (07:18)
[2021-10-16 07:53] LABS: Hematocrit 27.2 % (30.3-42.9); Hemoglobin 8.7 gm/dl (10.1-14.3)
[2021-10-16] MEDS: KETOROLAC 30 MG/1 ML INJ IV SCH ×3 (08:00→18:47)
[2021-10-16] MEDS: PRENATAL VIT27-FE FUMARATE-FOLIC ACID VIT TAB PO SCH (10:55)
--- NOTE | 2021-10-16 11:58 | Progress Note ---
Assessment and Plan A: POD#1 s/p primary at 35 wks CHTN with superimposed preeclampsia on magnesium sulfate for seizure prophylaxis Acute blood loss anemia s/p 2 units PRBCs Irregular heart beat Asthma Herniated disc P: Continue magnesium for 24 hours Continue to monitor clinical status Subjective - Subjective Date of service: 10/16/21 Principal diagnosis: POD#1 s/p primary cesrean, CHTN with superimposed preeclampsia Interval history: Pt feeling well presently. + flatus. Tolerating clear liquids. Receiving magnesium sulfate for seizure prophylaxis. Avila in place. SCDs in place. Patient reports: appetite normal, pain well controlled, flatus, no voiding normally (avila), no bowel movement, no ambulating normally (SCDs in place ) : in NICU Objective - Vital Signs Latest vital signs: Vital Signs Temp Pulse Resp BP BP Pulse Ox 10/16/21 11:53 73 99 10/16/21 11:48 71 98 10/16/21 11:43 69 100 10/16/21 11:38 74 99 10/16/21 11:33 68 99 10/16/21 11:28 70 99 10/16/21 11:23 70 99 10/16/21 11:18 67 99 10/16/21 11:13 75 98 10/16/21 11:08 66 100 10/16/21 11:04 71 144/88 10/16/21 11:03 71 99 10/16/21 10:58 78 100 10/16/21 10:54 67 145/82 10/16/21 10:53 72 99 10/16/21 10:48 69 100 10/16/21 10:43 69 99 10/16/21 10:38 66 100 10/16/21 10:33 70 100 10/16/21 10:28 71 99 10/16/21 10:23 75 100 10/16/21 10:18 69 100 10/16/21 10:13 73 100 10/16/21 10:08 70 100 10/16/21 10:04 72 145/82 10/16/21 10:03 73 100 10/16/21 09:58 68 99 10/16/21 09:53 75 99 10/16/21 09:48 70 100 10/16/21 09:43 72 100 10/16/21 09:38 73 100 10/16/21 09:33 71 99 10/16/21 09:28 77 100 10/16/21 09:23 73 100 10/16/21 09:18 66 100 10/16/21 09:13 67 100 10/16/21 09:08 62 100 10/16/21 09:04 62 161/79 10/16/21 09:03 62 100 10/16/21 08:58 68 99 10/16/21 08:53 66 99 10/16/21 08:48 67 100 10/16/21 08:43 70 100 10/16/21 08:38 66 100 10/16/21 08:33 61 100 10/16/21 08:28 70 99 10/16/21 08:23 65 100 10/16/21 08:18 66 99 10/16/21 08:13 62 99 10/16/21 08:08 62 99 10/16/21 08:04 63 159/85 10/16/21 08:03 73 99 10/16/21 08:00 98.4 F 16 10/16/21 07:58 64 99 10/16/21 07:53 69 99 10/16/21 07:48 66 97 10/16/21 07:43 66 97 10/16/21 07:38 67 98 10/16/21 07:33 68 98 10/16/21 07:28 65 98 10/16/21 07:23 67 99 10/16/21 07:18 65 98 10/16/21 07:13 68 99 10/16/21 07:08 66 98 10/16/21 07:06 73 133/80 10/16/21 07:03 72 97 10/16/21 06:58 68 96 10/16/21 06:53 69 96 10/16/21 06:48 67 96 10/16/21 06:43 67 96 10/16/21 06:41 77 93 10/16/21 06:38 66 97 10/16/21 06:33 66 97 10/16/21 06:28 71 97 10/16/21 06:23 74 97 10/16/21 06:18 71 97 10/16/21 06:13 73 96 10/16/21 06:08 69 96 10/16/21 06:03 70 96 10/16/21 05:58 69 97 10/16/21 05:53 70 96 0723/22 05:48 69 97 07 05:43 70 97 10/16/21 05:38 68 98 07 05:34 84 96 10/16/21 05:28 73 99 07 05:23 78 99 07 05:19 67 98 07 05:13 76 99 10/16/21 04:31 68 98 07 04:28 67 147/73 10/16/21 04:26 72 98 07 04:21 71 98 10/16/21 04:16 71 98 07 04:13 69 144/76 10/16/21 04:11 68 98 10/16/21 04:06 71 98 10/16/21 04:01 68 97 10/16/21 03:58 66 151/77 10/16/21 03:56 71 98 10/16/21 03:51 70 97 10/16/21 03:46 71 97 10/16/21 03:43 65 141/76 10/16/21 03:41 74 97 10/16/21 03:36 70 97 10/16/21 03:31 73 97 10/16/21 03:28 67 150/83 10/16/21 03:26 70 97 10/16/21 03:21 72 98 10/16/21 03:16 73 98 10/16/21 03:13 71 151/85 10/16/21 03:11 69 98 10/16/21 03:06 69 98 10/16/21 03:01 67 99 10/16/21 02:58 66 155/89 10/16/21 02:56 69 99 10/16/21 02:51 67 98 10/16/21 02:46 67 99 07 02:43 68 168/93 10/16/21 02:41 71 99 07 02:36 74 98 10/16/21 02:31 71 98 10/16/21 02:28 63 169/88 10/16/21 02:26 66 98 10/16/21 02:21 69 98 10/16/21 02:16 70 98 10/16/21 02:14 74 168/80 10/16/21 02:11 75 99 10/16/21 02:06 68 98 07/23/22 02:01 68 99 10/16/21 01:58 64 146/82 10/16/21 01:56 65 98 10/16/21 01:51 65 98 10/16/21 01:46 70 98 10/16/21 01:43 64 155/87 10/16/21 01:41 68 98 10/16/21 01:36 67 98 10/16/21 01:31 63 99 10/16/21 01:28 64 148/85 10/16/21 01:26 65 98 10/16/21 01:21 68 99 10/16/21 01:16 71 99 10/16/21 01:13 62 152/83 10/16/21 01:11 69 99 10/16/21 01:09 16 10/16/21 01:06 71 99 10/16/21 01:01 67 98 10/16/21 00:58 73 137/75 10/16/21 00:56 71 97 10/16/21 00:51 70 97 10/16/21 00:46 68 98 10/16/21 00:43 65 149/80 10/16/21 00:41 67 98 10/16/21 00:36 69 98 10/16/21 00:31 74 98 10/16/21 00:29 88 139/76 10/16/21 00:26 71 98 10/16/21 00:21 68 98 10/16/21 00:16 68 97 10/16/21 00:13 64 141/79 10/16/21 00:11 70 98 10/16/21 00:06 70 98 10/16/21 00:01 72 98 10/15/21 23:58 70 147/81 22 23:56 71 98 0722 23:51 69 98 0722 23:46 74 98 0722 23:43 85 143/77 0722 23:41 71 97 0722 23:36 76 97 0722 23:31 69 97 0722 23:30 97.1 F L 16 98 072222 23:28 75 149/82 2222 23:26 74 97 072222 23:21 71 97 22 23:16 75 98 0722/22 23:13 67 146/79 0722/22 23:11 70 98 0722/22 23:06 73 98 0722/22 23:01 74 97 072222 22:58 71 155/87 0722/22 22:56 69 98 0722/22 22:51 69 97 0722/22 22:46 71 97 0722/22 22:43 69 156/88 072222 22:41 70 98 22 22:36 72 97 072222 22:31 70 97 0722/22 22:28 71 151/85 0722/22 22:26 69 97 2222 22:21 71 97 0722 22:16 78 97 22 22:13 73 157/85 22 22:11 70 97 22 22:06 71 98 22 22:01 72 97 22 21:58 71 148/85 22 21:56 69 98 22 21:51 72 97 0722/22 21:46 69 97 0722/22 21:43 69 157/87 22/22 21:41 70 97 22/22 21:36 68 97 22/22 21:31 68 97 22/22 21:30 97.4 F L 16 98 22 21:28 64 163/91 0722/22 21:26 67 98 0722/22 21:21 71 98 0722/22 21:16 68 97 22/22 21:13 65 156/89 0722/22 21:11 68 98 0722/22 21:06 68 98 0722/22 21:01 74 97 0722/22 20:58 68 158/85 0722/22 20:56 69 98 0722/22 20:51 72 98 0722/22 20:46 74 97 0722/22 20:41 70 98 0722/22 20:39 68 155/79 0722/22 20:36 73 98 0722/22 20:34 70 151/68 0722/22 20:31 68 98 0722/22 20:30 75 19 165/82 99 07/22/22 20:29 76 165/82 10/15/21 20:26 71 98 10/15/21 20:24 76 163/84 10/15/21 20:21 71 98 10/15/21 20:17 64 152/75 10/15/21 20:16 64 98 10/15/21 20:11 66 98 10/15/21 20:10 64 140/77 10/15/21 20:06 73 98 10/15/21 20:01 71 99 10/15/21 19:56 74 98 10/15/21 19:51 75 99 10/15/21 19:46 72 98 10/15/21 19:20 68 16 144/87 98 10/15/21 19:05 98.7 F 79 17 146/85 100 10/15/21 19:00 76 17 141/87 100 10/15/21 18:55 75 19 137/77 100 10/15/21 18:50 76 21 126/70 100 10/15/21 18:45 98.5 F 78 20 132/77 100 10/15/21 18:40 75 15 130/73 100 10/15/21 18:35 74 19 122/78 100 10/15/21 18:30 78 17 138/69 100 10/15/21 18:25 71 15 139/77 100 10/15/21 18:20 98.2 F 74 17 132/69 100 10/15/21 16:56 86 100 10/15/21 16:51 78 100 10/15/21 16:49 75 146/80 10/15/21 16:46 76 100 10/15/21 16:43 80 136/87 10/15/21 16:41 81 100 10/15/21 16:39 87 148/95 10/15/21 16:36 81 100 10/15/21 16:31 79 100 10/15/21 16:26 75 100 10/15/21 16:24 76 139/84 10/15/21 16:21 90 99 10/15/21 16:18 76 115/61 10/15/21 16:16 76 97 10/15/21 16:14 77 118/62 10/15/21 16:11 76 97 10/15/21 16:08 75 115/59 10/15/21 16:06 78 98 10/15/21 16:04 76 120/61 10/15/21 16:01 83 97 10/15/21 15:58 77 124/59 10/15/21 15:56 86 98 10/15/21 15:54 77 148/81 10/15/21 15:51 76 99 10/15/21 15:48 74 138/74 10/15/21 15:46 79 99 10/15/21 15:44 83 151/92 10/15/21 15:41 83 98 10/15/21 15:36 74 98 10/15/21 15:31 74 98 10/15/21 15:26 69 98 10/15/21 15:21 72 98 10/15/21 15:16 75 97 10/15/21 15:13 74 160/86 10/15/21 15:11 74 98 10/15/21 15:06 72 98 10/15/21 15:01 77 98 10/15/21 14:56 72 97 10/15/21 14:51 72 98 10/15/21 14:46 72 97 10/15/21 14:43 71 153/89 10/15/21 14:41 73 97 10/15/21 14:36 72 97 10/15/21 14:31 76 98 10/15/21 14:26 74 97 10/15/21 14:21 71 97 10/15/21 14:16 72 97 10/15/21 14:12 68 145/79 10/15/21 14:11 69 96 10/15/21 14:06 69 97 10/15/21 14:01 72 97 10/15/21 13:56 72 96 10/15/21 13:51 70 96 10/15/21 13:46 69 96 10/15/21 13:42 69 140/78 10/15/21 13:41 68 97 10/15/21 13:36 68 97 10/15/21 13:31 71 97 10/15/21 13:26 68 97 10/15/21 13:21 70 96 10/15/21 13:16 70 97 10/15/21 13:12 69 125/73 10/15/21 13:11 70 96 10/15/21 13:06 71 96 10/15/21 13:01 69 96 10/15/21 12:56 70 96 10/15/21 12:51 72 96 10/15/21 12:46 73 96 10/15/21 12:43 78 144/78 10/15/21 12:41 73 96 10/15/21 12:36 72 96 10/15/21 12:31 74 97 10/15/21 12:26 70 96 10/15/21 12:21 74 96 10/15/21 12:16 75 96 10/15/21 12:11 73 137/77 96 10/15/21 12:06 68 135/72 96 10/15/21 12:01 70 135/74 96 Intake and Output 10/15/21 10/16/21 10/16/21 22:59 06:59 14:59 Intake Total 2684.300 500 50 Output Total 220 3150 Balance 2464.300 -2650 50 Intake: IV 2684.300 50 AMPICILLIN/NS 1 GM/50 ML 50 1 gm In 50 ml @ 100 mls/ hr IV Q4H YASMIN Rx#: [id number] MAGNESIUM SULFATE 40GM/ 679.167 1000ML 40 gm In 1,000 ml @ 2 GM/HR 50 mls/hr IV DIRECT YASMIN Rx#:[id number] PITOCin/NS 30 UNIT/500ML 5.133 30 units In 500 ml @ 2 mls/hr IV TITR YASMIN Rx#: [id number] Oral 100 Intake, Free Water 400 Output: Urine 220 3150 Indwelling Catheter 1950 Uretheral (Avila) 60 1200 Other: Intake, Other Source Saline Solution Total, Intake Amount 100 Total, Output Amount 250 Estimated Blood Loss 1,600 - Exam Breasts: Present: deferred Abdomen: Present: soft, distention (mild, tympanic ) Uterus: Present: fundal height at umbilicus Extremities: Present: edema (1+) - Labs Labs: Abnormal lab results 10/15/21 10/16/21 Range/Units 17:36 07:02 Hgb 8.7 L (10.1-14.3) gm/dl Hct 27.2 L (30.3-42.9) % Crossmatch See Detail
[2021-10-16] MEDS: oxyCODONE /ACETAMINOPHEN 5-325MG TAB PO PRN ×2 (13:17→19:56)
[2021-10-16] MEDS: MAGNESIUM SULFATE 40GM/1000ML 40 GM/1,000 ML BAG IV SCH (18:29)
[2021-10-16] MEDS ORDERED: MEASLES, MUMPS & RUBELLA 12,500 UNIT/0.5 ML VACCINE SUB-Q ONE (18:57)
[2021-10-16] MEDS ORDERED: TETANUS,DIPH,PERTUSS(ACELL) VACCINE 0.5 ML SYRINGE IM ONE (18:57)
[2021-10-17] MEDS: hydrALAZINE 20 MG/1 ML INJ IV PRN (01:02)
[2021-10-17] MEDS: oxyCODONE /ACETAMINOPHEN 5-325MG TAB PO PRN ×4 (03:49→23:47)
[2021-10-17] MEDS: KETOROLAC 30 MG/1 ML INJ IV SCH (06:26)
--- NOTE | 2021-10-17 08:25 | Progress Note ---
Assessment and Plan A: POD#2 s/p primary at 35 wks Suboptimal pain control Suboptimal blood pressure control CHTN with superimposed preeclampsia s/p 24 hours of magnesium sulfate for seizure prophylaxis Acute blood loss anemia s/p 2 units PRBCs Irregular heart beat Asthma Herniated disc P: Optimize pain regimen Discontinue labetalol Start Procardia XL 60 mg daily, titrate as needed Closely monitor clinical status Subjective - Subjective Date of service: 10/17/21 Principal diagnosis: POD#2 s/p primary cesrean, CHTN with superimposed preeclampsia Interval history: Pt feeling well presently. + flatus. Tolerating clear liquids. s/p magensium sulfate for seizure prophylaxis. Pt reports poor pain control overnight Patient reports: appetite normal, voiding normally, flatus, pain poorly controlled, ambulating normally, no bowel movement [place]: in NICU Objective - Vital Signs Latest vital signs: Vital Signs Temp Pulse Resp BP BP BP Pulse Ox 10/17/21 06:26 16 10/17/21 05:26 10/17/21 03:49 18 10/17/21 03:44 98.3 F 76 18 152/89 99 10/17/21 01:34 64 138/76 10/17/21 01:06 57 L 182/87 10/17/21 01:02 57 L 182/87 10/16/21 23:15 56 L 176/92 10/16/21 23:13 63 176/92 100 10/16/21 21:40 98.5 F 63 18 152/79 100 10/16/21 21:33 98.5 F 60 20 152/79 100 10/16/21 21:00 62 146/84 10/16/21 20:59 98.4 F 69 16 151/86 146/84 99 10/16/21 20:58 68 99 10/16/21 20:56 18 10/16/21 20:53 67 97 10/16/21 20:48 66 98 10/16/21 20:43 69 97 10/16/21 20:38 65 98 10/16/21 20:33 67 98 10/16/21 20:28 69 98 10/16/21 20:23 62 98 10/16/21 20:18 63 98 10/16/21 20:13 63 99 10/16/21 20:08 63 99 10/16/21 20:04 65 137/64 10/16/21 20:03 75 98 10/16/21 19:58 75 99 10/16/21 19:53 61 99 10/16/21 19:50 10/16/21 19:48 60 99 10/16/21 19:43 60 99 10/16/21 19:38 63 100 10/16/21 19:33 65 100 10/16/21 19:28 60 99 10/16/21 19:23 72 100 10/16/21 19:18 69 99 10/16/21 19:13 68 99 10/16/21 19:08 61 100 10/16/21 19:04 64 138/70 10/16/21 19:03 66 98 10/16/21 18:58 62 98 10/16/21 18:53 62 98 10/16/21 18:48 66 99 10/16/21 18:43 64 98 10/16/21 18:38 67 99 10/16/21 18:33 65 99 10/16/21 18:28 70 99 10/16/21 18:23 87 95 10/16/21 18:18 72 99 10/16/21 18:13 74 99 10/16/21 18:08 67 97 10/16/21 18:04 64 152/88 10/16/21 18:03 65 98 10/16/21 17:58 69 98 10/16/21 17:53 64 98 10/16/21 17:48 72 98 10/16/21 17:43 68 98 10/16/21 17:38 68 98 10/16/21 17:33 69 98 10/16/21 17:28 69 99 10/16/21 17:23 66 98 10/16/21 17:18 66 99 10/16/21 17:13 65 98 10/16/21 17:08 66 98 10/16/21 17:04 64 130/77 10/16/21 17:03 68 98 10/16/21 16:58 68 98 10/16/21 16:53 71 99 10/16/21 16:48 63 99 10/16/21 16:43 64 98 10/16/21 16:38 68 98 10/16/21 16:33 69 97 10/16/21 16:28 69 97 10/16/21 16:23 70 99 10/16/21 16:18 66 99 07/23/22 16:13 66 99 10/16/21 16:08 66 99 10/16/21 16:04 63 133/75 10/16/21 16:03 66 99 10/16/21 15:58 66 99 10/16/21 15:53 77 98 10/16/21 15:48 78 98 10/16/21 15:43 75 98 10/16/21 15:38 75 96 10/16/21 15:33 74 98 10/16/21 15:28 69 98 10/16/21 15:23 73 97 10/16/21 15:18 73 98 10/16/21 15:13 78 97 10/16/21 15:08 72 98 10/16/21 15:04 75 125/71 10/16/21 15:03 80 97 10/16/21 14:58 86 97 10/16/21 14:53 69 97 10/16/21 14:48 67 97 10/16/21 14:43 67 98 10/16/21 14:38 71 97 10/16/21 14:33 69 97 10/16/21 14:28 88 98 10/16/21 14:23 67 98 10/16/21 14:18 68 98 10/16/21 14:13 70 98 10/16/21 14:08 62 98 10/16/21 14:04 66 118/73 10/16/21 14:03 67 97 10/16/21 13:58 70 98 10/16/21 13:53 66 98 10/16/21 13:48 65 97 10/16/21 13:43 66 98 10/16/21 13:38 66 98 10/16/21 13:33 65 98 10/16/21 13:28 68 98 10/16/21 13:23 68 98 10/16/21 13:18 72 98 10/16/21 13:17 16 10/16/21 13:13 67 98 10/16/21 13:08 98.2 F 70 98 10/16/21 13:04 67 121/71 10/16/21 13:03 68 99 07 12:58 81 98 10/16/21 12:53 71 98 10/16/21 12:48 69 98 10/16/21 12:43 70 98 10/16/21 12:38 68 99 10/16/21 12:33 74 98 10/16/21 12:28 72 98 10/16/21 12:23 68 98 10/16/21 12:18 67 98 10/16/21 12:13 70 98 10/16/21 12:08 67 98 10/16/21 12:04 69 137/71 10/16/21 12:03 69 99 10/16/21 11:58 68 100 10/16/21 11:53 73 99 10/16/21 11:48 71 98 10/16/21 11:43 69 100 10/16/21 11:38 74 99 10/16/21 11:33 68 99 10/16/21 11:28 70 99 10/16/21 11:23 70 99 10/16/21 11:18 67 99 10/16/21 11:13 75 98 10/16/21 11:08 66 100 10/16/21 11:04 71 144/88 10/16/21 11:03 71 99 10/16/21 10:58 78 100 10/16/21 10:54 67 145/82 10/16/21 10:53 72 99 10/16/21 10:48 69 100 10/16/21 10:43 69 99 10/16/21 10:38 66 100 10/16/21 10:33 70 100 10/16/21 10:28 71 99 10/16/21 10:23 75 100 10/16/21 10:18 69 100 10/16/21 10:13 73 100 10/16/21 10:08 70 100 10/16/21 10:04 72 145/82 10/16/21 10:03 73 100 10/16/21 09:58 68 99 10/16/21 09:53 75 99 10/16/21 09:48 70 100 10/16/21 09:43 72 100 10/16/21 09:38 73 100 10/16/21 09:33 71 99 10/16/21 09:28 77 100 10/16/21 09:23 73 100 10/16/21 09:18 66 100 10/16/21 09:13 67 100 10/16/21 09:08 62 100 10/16/21 09:04 62 161/79 10/16/21 09:03 62 100 10/16/21 08:58 68 99 10/16/21 08:53 66 99 10/16/21 08:48 67 100 10/16/21 08:43 70 100 10/16/21 08:38 66 100 10/16/21 08:33 61 100 10/16/21 08:28 70 99 10/16/21 08:23 65 100 Pulse Ox 10/17/21 06:26 10/17/21 05:26 98 10/17/21 03:49 10/17/21 03:44 10/17/21 01:34 10/17/21 01:06 10/17/21 01:02 10/16/21 23:15 10/16/21 23:13 10/16/21 21:40 10/16/21 21:33 10/16/21 21:00 10/16/21 20:59 10/16/21 20:58 10/16/21 20:56 10/16/21 20:53 10/16/21 20:48 10/16/21 20:43 10/16/21 20:38 10/16/21 20:33 10/16/21 20:28 10/16/21 20:23 10/16/21 20:18 10/16/21 20:13 10/16/21 20:08 10/16/21 20:04 10/16/21 20:03 10/16/21 19:58 10/16/21 19:53 10/16/21 19:50 99 10/16/21 19:48 10/16/21 19:43 10/16/21 19:38 10/16/21 19:33 10/16/21 19:28 10/16/21 19:23 10/16/21 19:18 10/16/21 19:13 10/16/21 19:08 10/16/21 19:04 10/16/21 19:03 10/16/21 18:58 10/16/21 18:53 10/16/21 18:48 10/16/21 18:43 10/16/21 18:38 10/16/21 18:33 10/16/21 18:28 10/16/21 18:23 10/16/21 18:18 10/16/21 18:13 10/16/21 18:08 10/16/21 18:04 10/16/21 18:03 10/16/21 17:58 10/16/21 17:53 10/16/21 17:48 10/16/21 17:43 10/16/21 17:38 10/16/21 17:33 10/16/21 17:28 10/16/21 17:23 10/16/21 17:18 10/16/21 17:13 10/16/21 17:08 10/16/21 17:04 10/16/21 17:03 10/16/21 16:58 10/16/21 16:53 10/16/21 16:48 10/16/21 16:43 10/16/21 16:38 10/16/21 16:33 10/16/21 16:28 10/16/21 16:23 10/16/21 16:18 10/16/21 16:13 10/16/21 16:08 10/16/21 16:04 10/16/21 16:03 10/16/21 15:58 10/16/21 15:53 10/16/21 15:48 10/16/21 15:43 10/16/21 15:38 10/16/21 15:33 10/16/21 15:28 10/16/21 15:23 10/16/21 15:18 10/16/21 15:13 10/16/21 15:08 10/16/21 15:04 10/16/21 15:03 10/16/21 14:58 10/16/21 14:53 10/16/21 14:48 10/16/21 14:43 10/16/21 14:38 10/16/21 14:33 10/16/21 14:28 10/16/21 14:23 10/16/21 14:18 10/16/21 14:13 10/16/21 14:08 10/16/21 14:04 10/16/21 14:03 10/16/21 13:58 10/16/21 13:53 10/16/21 13:48 10/16/21 13:43 10/16/21 13:38 10/16/21 13:33 10/16/21 13:28 10/16/21 13:23 10/16/21 13:18 10/16/21 13:17 10/16/21 13:13 10/16/21 13:08 10/16/21 13:04 10/16/21 13:03 10/16/21 12:58 10/16/21 12:53 10/16/21 12:48 10/16/21 12:43 10/16/21 12:38 10/16/21 12:33 10/16/21 12:28 10/16/21 12:23 10/16/21 12:18 10/16/21 12:13 10/16/21 12:08 10/16/21 12:04 10/16/21 12:03 10/16/21 11:58 10/16/21 11:53 10/16/21 11:48 10/16/21 11:43 10/16/21 11:38 10/16/21 11:33 10/16/21 11:28 10/16/21 11:23 10/16/21 11:18 10/16/21 11:13 10/16/21 11:08 10/16/21 11:04 10/16/21 11:03 10/16/21 10:58 10/16/21 10:54 10/16/21 10:53 10/16/21 10:48 10/16/21 10:43 10/16/21 10:38 10/16/21 10:33 10/16/21 10:28 10/16/21 10:23 10/16/21 10:18 10/16/21 10:13 10/16/21 10:08 10/16/21 10:04 10/16/21 10:03 10/16/21 09:58 10/16/21 09:53 10/16/21 09:48 10/16/21 09:43 10/16/21 09:38 10/16/21 09:33 10/16/21 09:28 10/16/21 09:23 10/16/21 09:18 10/16/21 09:13 10/16/21 09:08 10/16/21 09:04 10/16/21 09:03 10/16/21 08:58 10/16/21 08:53 10/16/21 08:48 10/16/21 08:43 10/16/21 08:38 10/16/21 08:33 10/16/21 08:28 10/16/21 08:23 Intake and Output 10/16/21 10/17/21 10/17/21 22:59 06:59 14:59 Intake Total 1450 Output Total 1200 Balance 250 Intake: IV 1000 MAGNESIUM SULFATE 40GM/ 1000 1000ML 40 gm In 1,000 ml @ 2 GM/HR 50 mls/hr IV DIRECT YASMIN Rx#:[id number] Oral 450 Output: Urine 1200 Indwelling Catheter 1200 Other: Total, Intake Amount 450 Total, Output Amount 400 - Exam Breasts: Present: deferred Abdomen: Present: soft (obese ) Uterus: Present: fundal height at umbilicus Extremities: Present: edema (trace) Incision: Present: dressed - Labs Labs: Abnormal lab results 10/15/21 Range/Units 17:36 Crossmatch See Detail
[2021-10-17] MEDS: HYDROmorphone 0.5 MG/0.5 ML INJ IV PRN ×2 (08:36→20:00)
[2021-10-17] MEDS: NIFEdipine XL 60 MG TAB PO SCH (10:11)
[2021-10-17] MEDS: PRENATAL VIT27-FE FUMARATE-FOLIC ACID VIT TAB PO SCH (10:12)
[2021-10-17] MEDS: IBUPROFEN 800 MG TAB PO SCH ×2 (10:17→18:52)
[2021-10-18] MEDS: IBUPROFEN 800 MG TAB PO SCH (02:57)
[2021-10-18] MEDS: oxyCODONE /ACETAMINOPHEN 5-325MG TAB PO PRN ×3 (06:00→16:39)
[2021-10-18] MEDS: PRENATAL VIT27-FE FUMARATE-FOLIC ACID VIT TAB PO SCH (09:42)
[2021-10-18] MEDS: NIFEdipine XL 60 MG TAB PO SCH (09:42)
--- NOTE | 2021-10-18 13:53 | Progress Note ---
Assessment and Plan A: POD#3 s/p primary at 35 wks CHTN with superimposed preeclampsia s/p 24 hours of magnesium sulfate for seizure prophylaxis Acute blood loss anemia s/p 2 units PRBCs Irregular heart beat Asthma Herniated disc P: Routine postop care Lasix 40 mg IV x 1 Lactulose 20 mg x 1 Discharge today with follow up in 1 wk for BP check Subjective - Subjective Date of service: 10/18/21 Principal diagnosis: POD#3 s/p primary cesrean, CHTN with superimposed preeclampsia Interval history: Pt feeling well presently. + flatus. Tolerating regular diet. s/p magnesium sulfate. No bowel movement. Patient reports: appetite normal, voiding normally, pain well controlled, flatus, ambulating normally [place]: in NICU Objective - Vital Signs Latest vital signs: Vital Signs Temp Pulse Resp BP Pulse Ox Pulse Ox 10/18/21 12:03 98.7 F 69 18 144/82 100 10/18/21 08:08 98.7 F 77 18 138/78 98 10/18/21 06:13 98.3 F 73 18 123/65 98 10/18/21 01:03 98.2 F 73 18 131/81 96 10/17/21 20:56 98.3 F 72 18 149/80 98 10/17/21 20:00 98 10/17/21 16:34 98.4 F 57 L 18 166/79 100 Intake and Output 10/17/21 10/18/21 10/18/21 22:59 06:59 14:59 Intake Total 480 600 960 Output Total 350 Balance 130 600 960 Intake: Oral 480 360 Intake, Free Water 600 600 Output: Urine 350 Indwelling Catheter 350 Other: Total, Intake Amount 480 240 Total, Output Amount 350 # Voids Void 1 2 - Exam Breasts: Present: deferred Abdomen: Present: soft Uterus: Present: fundal height at umbilicus Extremities: Present: edema (1+ ) Incision: Present: intact (with [place] )
--- NOTE | 2021-10-18 13:58 | Discharge Summary ---
Providers - Providers Date of Admission: 10/12/21 00:26 Date of discharge: 10/18/21 Attending physician: JACQUIE OVALLE 10/15/21 18:56 Consult to [employer] [CONS] Routine Reason For Exam: Primary care physician: JACQUIE OVALLE Hospitalization Reason for admission: other (elevated blood pressure, contractions ) Delivery: Procedure: section, primary low transverse Procedure details: Please see operative report Episiotomy: none Laceration: none Incision: intact (with [place] ) complications: transfusion Discharge diagnosis: delivery [place] baby: female Hospital course: This patient was admitted at 35 weeks secondary to contractions and elevated blood pressure. She was found to have chronic hypertension with superimposed preeclampsia. She underwent induction of labor but ultimately underwent primary section which she tolerated well. She received magnesium sulfate during her labor as well as for 24 hours after delivery. Her delivery was complicated by acute blood loss anemia status post 2 units of packed red blood cells. The remainder of her course was uncomplicated and she met discharge criteria on postoperative day #3. She will follow-up in 1 week for staple removal and blood pressure check. Condition at discharge: Stable Disposition: 01 HOME / SELF CARE / HOMELESS - Discharge Diagnoses (1) Pre-eclampsia superimposed on chronic hypertension Status: Acute (2) delivery Status: Acute (3) Asthma Status: Acute Qualifiers: Asthma persistence: unspecified Asthma complication type: unspecified (4) Acute blood loss anemia Status: Acute (5) Anemia Status: Acute Qualifiers: Anemia type: iron deficiency Iron deficiency anemia type: unspecified iron deficiency Qualified Code(s): D50.9 - Iron deficiency anemia, unspecified (6) Chronic hypertension affecting Status: Acute Plan - Discharge Medications Prescriptions: Ferrous Sulfate [Feosol 325 MG tab] 325 mg PO BID #60 tablet labetaloL [Labetalol 100mg TAB] 100 mg PO BID #60 tab Furosemide [Lasix] 40 mg PO DAILY #7 Ibuprofen [Motrin] 800 mg PO Q8HR PRN #30 tablet PRN Reason: Pain, Moderate (4-6) oxyCODONE /ACETAMINOPHEN [Percocet 5/325] 1 tab PO Q6HR PRN #40 tablet PRN Reason: Pain NIFEdipine XL [Procardia Xl] 60 mg PO QDAY #30 tablet - Provider Discharge Summary Activity: routine, no sex for 6 weeks, no heavy lifting 4 weeks, no strenuous exercise Diet: routine Instructions: routine Additional instructions: [] Smoking cessation referral if applicable(refer to patient education folder for contact #) [] Refer to [facility] Booklet Call your doctor immediately for: * Fever > 100.5 * Heavy vaginal bleeding ( >1 pad per hour) * Severe persistent headache * Shortness of breath * Reddened, hot, painful area to leg or breast * Drainage or odor from incision. * Keep incision clean and dry at all times and follow doctor's instructions regarding bathing/showering - Follow up plan Follow up: JACQUIE OVALLE MD [Primary Care Provider] - 7 Days
[2021-10-18] MEDS ORDERED: FUROSEMIDE 40 MG/4 ML INJ IV ONE ×2 (13:59→16:00)
[2021-10-18] MEDS ORDERED: LACTULOSE 20 GM/30 ML ORAL LIQD PO SCH (14:00)
[2021-10-18 17:06] VITALS: BP 133/91
== END 2021-10-18 20:15 | disposition home or self-care (01) | DRG 765 ==
LOC: TRG 18:24 → APU 20:50 → OBSVTOIN 10-12 00:26 → TRG 10-12 00:26 → LD 10-12 00:26 → OB 10-16 21:30
PROVIDERS: ADMIT Obstetrics & Gynecology; ATTEND Obstetrics & Gynecology
PROC: 10D00Z1 Extraction of Products of Conception, Low, Open Approach (ICD-10-PCS; principal; 2021-10-15)
PROC: 30233N1 Transfusion of Nonautologous Red Blood Cells into Peripheral Vein, Percutaneous Approach (ICD-10-PCS; 2021-10-15)
PROC: 3E0234Z Introduction of Serum, Toxoid and Vaccine into Muscle, Percutaneous Approach (ICD-10-PCS; 2021-10-16)
PROC: 3E0134Z Introduction of Serum, Toxoid and Vaccine into Subcutaneous Tissue, Percutaneous Approach (ICD-10-PCS; 2021-10-16)
DX: O60.14X0 Preterm labor third trimester with preterm delivery third trimester, not applicable or unspecified (principal); O72.1 Other immediate postpartum hemorrhage; D62 Acute posthemorrhagic anemia; O76 Abnormality in fetal heart rate and rhythm complicating labor and delivery; O99.02 Anemia complicating childbirth; J45.909 Unspecified asthma, uncomplicated; O13.4 Gestational [pregnancy-induced] hypertension without significant proteinuria, complicating childbirth; Z20.822 Contact with and (suspected) exposure to COVID-19; O99.52 Diseases of the respiratory system complicating childbirth; O14.94 Unspecified pre-eclampsia, complicating childbirth; Z3A.35 35 weeks gestation of pregnancy; Z37.0 Single live birth; Z23 Encounter for immunization
CPT/HCPCS: 36415; 81001; 82565; 83615; 83735; 84450; 84460; 84550; 85014; 85018; 85027; 86850; 86900; 86901; 86920; 88305; G0378; J3490; J0290; J0360; J0595; J0690; J1170; J1885; J1940; J2370; J2405; J2590; J3010; J3475; J7030; J7040; J7120; P9016; U0003